=== PATIENT | female | born 1930 | race Caucasian/White ===

== ENCOUNTER 2017-01-18 12:57 | Inpatient (IN) | payer MEDICARE, OTHER ==
[~2017-01-18] VITALS: Ht 160 cm; Wt 43.0 kg
[2017-01-18] VITALS (7 sets, daily range): BP systolic 73–118; BP diastolic 44–57; PULSE 69–100; RESP 16–24; TEMP 96.7–98.5; O2SAT 97–100
[~2017-01-18 12:57] MED LIST: ASPI325T PO; ATOR40TA49 PO; CLOP75 PO; CYCL-36 PO; LOTR5CAP3 PO; MEDR4PAK3 PO; TRAM50 PO
--- NOTE | 2017-01-18 13:04 | PD ---
Physical Exam Time Seen by Provider: 13:04 Narrative 86 y/o female presents with 3 weeks diarrhea, abdominal pain, vomiting. She reports 26 pound weight loss. Seen by pcp [facility] today, sent here. Vital signs reviewed. seen at triage desk. Being immediately bedded. Data Data Last Documented VS Vital Signs Date Time Temp Pulse Resp B/P Pulse Ox O2 Delivery O2 Flow Rate FiO2 01/18/17 13:02 98.5 95 24 73/44 97 Room Air [facility] Medical Record Reviewed: Yes Supervised Visit with ADEN: Desean Vera Jan 18, 2017 13:04
[2017-01-18] MEDS ORDERED: SODIUM CHLOR 0.9% 1000 ML INJ 1,000 ML IV SCH (13:41)
[2017-01-18] MEDS ORDERED: ONDANSETRON HCL 4 MG/2 ML VIAL IVP ONE (13:45)
[2017-01-18 14:19] LABS: AUTOMATED NEUTROPHIL # 14.9 TH/MM3 (1.8-7.7); BASOPHIL # 0.1 TH/MM3 (0-0.2); BASOPHIL % 0.3 % (0.0-2.0); EOSINOPHIL # 0.1 TH/MM3 (0-0.4); EOSINOPHIL % 0.5 % (0.0-4.0); HEMO FLAGS DIFF FINAL; LYMPH % 10.8 % (9.0-44.0); MEAN CELL VOLUME 91.6 FL (80.0-100.0); MEAN CORPUSCULAR HEMOGLOBIN 30.5 PG (27.0-34.0); MEAN CORPUSCULAR HGB CONC 33.4 % (32.0-36.0); MONO % 6.8 % (0.0-8.0); NEUT % 81.6 % (16.0-70.0); PLATELET COUNT 391 TH/MM3 (150-450); RED BLOOD COUNT 4.04 MIL/MM3 (4.00-5.30); RED CELL DISTRIBUTION WIDTH 18.3 % (11.6-17.2); WHITE BLOOD COUNT 18.3 TH/MM3 (4.0-11.0)
[2017-01-18 14:31] LABS: APTT (PATIENT) 30.3 SEC (24.3-30.1); INTERNATIONAL NORMALIZED RATIO 1.4 RATIO; PROTHROMBIN TIME - PATIENT 16.1 SEC (9.8-11.6)
[2017-01-18] MEDS: SODIUM CHLORIDE 0.9% FLUSH 10 ML FLUSH IV FLUSH PRN (14:37)
[2017-01-18 14:49] LABS: BICARBONATE 10.4 MEQ/L (21.0-32.0); POTASSIUM 3.6 MEQ/L (3.5-5.1)
[2017-01-18 14:54] LABS: CALCIUM-PROTEIN CORRECTED 8.2 MG/DL (8.5-10.1); TOTAL BILIRUBIN ADULT 0.2 MG/DL (0.2-1.0)
--- NOTE | 2017-01-18 15:15 | RADRPT ---
EXAM DATE/TIME: 01/18/2017 14:36 [place] COMPARISON: No previous studies available for comparison. INDICATIONS : Abdominal pain with nausea, vomitting and diarhea for 3 weeks. Back pain, hypotension. ORAL CONTRAST: No oral contrast ingested. RADIATION DOSE: 9.96 CTDIvol (mGy) MEDICAL HISTORY : Hypertension. Carcinoma, breast. SURGICAL HISTORY : Pacemaker. Coronary artery stent.Hysterectomy, Left breast lumpectomy ENCOUNTER: Initial ACUITY: 1 day PAIN SCALE: 8/10 LOCATION: abdomen TECHNIQUE: Volumetric scanning of the abdomen and pelvis was performed. Using automated exposure control and ad justment of the mA and/or kV according to patient size, radiation dose was kept as low as reasonably achievable to obtain optimal diagnostic quality images. DICOM format image data is available electro nically for review and comparison. FINDINGS: LOWER LUNGS: Focal rounded calcifications in the right base are likely pleural-based. On bases are otherwise clear . LIVER: Diffusely normal density mild intrahepatic ductal dilatation centrally particularly in the left lobe. Gallbladder is surgically absent. Common bile duct is not significantly dilated.SPLEEN: Normal size without lesion. PANCREAS: Within normal limits. KIDNEYS: Kidneys are asymmetric in size with small somewhat atrophic right kidney. The multiple small punctate calcifications in the mid anterior right kidney may reflect calyceal calculi. There is a subcentimet er hemorrhagic cyst in the inferior pole of the left kidney. No hydronephrosis or contour deforming a bnormality. ADRENAL GLANDS: Within normal limits. VASCULAR: There is no aortic aneurysm. Diffuse atherosclerotic calcifications involving the infrarenal abdomina l aorta with bulky calcified plaque in the common iliac arteries bilaterally. Left SFA stent in place . BOWEL/MESENTERY: Diffusely fluid-filled loops of nondistended small bowel without a definite transition point or signi ficant bowel wall thickening. Colon is also diffusely fluid-filled to the splenic flexure region. Mor e distally the colon is decompressed and incompletely evaluated although grossly unremarkable. There is scattered colonic diverticulosis in the descending colon with moderate sigmoid diverticulosis with out evidence for significant inflammatory change. No pneumatosis or free air. ABDOMINAL WALL: Within normal limits. RETROPERITONEUM: There is no lymphadenopathy. BLADDER: Bladder is distended but otherwise unremarkable by CT. REPRODUCTIVE: Uterus is surgically absent. No significant free fluid or drainable fluid collection. INGUINAL: There is no lymphadenopathy or hernia. MUSCULOSKELETAL: No abnormal focal lytic or blastic bony lesions. CONCLUSION: 1. Diffusely fluid-filled loops of nondistended small bowel and proximal colon without a transition p oint or significant bowel wall thickening. No evidence for bowel infarction or perforation. Overall, findings are most consistent with enteritis. 2. Colonic diverticulosis without definitive evidence for diverticulitis. 3. Asymmetrical renal size with somewhat atrophic appearing right kidney containing small punctate ca lcifications in the midpole which may reflect nonobstructing calyceal calculi. Bal Condon MD on January 18, 2017 at 15:02 Board Certified Radiologist. This report was verified electronically.
[2017-01-18] MEDS ORDERED: CIPROFLOXACIN 400 MG PREMIX 200 ML IV ONE (15:45)
[2017-01-18] MEDS ORDERED: metroNIDAZOLE 500 MG INJ 100 ML IV ONE (15:45)
[2017-01-18 15:46] LABS: C. DIFF EPI 027 PRESUMPTIVE NEGATIVE (NEGATIVE); C. DIFF TOXIN PCR NEGATIVE (NEGATIVE)
[2017-01-18] MEDS ORDERED: ZOFR4TAB PO (16:02)
[2017-01-18] MEDS ORDERED: WELC625T2 PO (16:02)
[2017-01-18] MEDS ORDERED: OMEP20TA PO (16:02)
--- NOTE | 2017-01-18 16:02 | PD ---
HPI Chief Complaint: GI Complaint Time Seen by Provider: 13:14 Travel History International Travel<30 days: No Contact w/Intl Traveler<30days: No Traveled to known affect area: No History of Present Illness HPI Patient is an 86-year-old female who comes in complaining of diarrhea for 3 weeks. She says she has lost 30 pounds over the course of her illness. She says she has not been eating because she feels nauseous. She has not really been vomiting. She says she has some lower abdominal cramping. She denies fever or chills. She has not been on any antibiotics. She went to see her doctor, who told her to come to the emergency department. She has not seen any blood in her stool. PFSH Past Medical History Hx Anticoagulant Therapy: Yes (plavix ) Arthritis: Yes Asthma: No Autoimmune Disease: No Blood Disorders: No Anxiety: Yes Depression: Yes Heart Rhythm Problems: No Cancer: Yes (BREAST CANCER) Cardiovascular Problems: Yes (pacemaker ) High Cholesterol: Yes Chemotherapy: Yes Chest Pain: Yes Congestive Heart Failure: No COPD: No Cerebrovascular Accident: No Diabetes: Yes Patient Takes Glucophage: No Diminished Hearing: Yes Endocrine: Yes Gastrointestinal Disorders: Yes (BOWEL EXPLORATION AND INFECTION.) GERD: No Glaucoma: No Genitourinary: No Headaches: Yes (OCCASIONALLY) Hepatitis: No Hiatal Hernia: No Hypertension: Yes Immune Disorder: No Kidney Stones: No Musculoskeletal: Yes (ARTHRITIS) Neurologic: No Psychiatric: Yes (DEPRESSION/ANXIETY) Reproductive: No Respiratory: No Migraines: No Myocardial Infarction: No Radiation Therapy: Yes Renal Failure: No Seizures: No Sickle Cell Disease: No Sleep Apnea: No Thyroid Disease: No Ulcer: No Influenza Vaccination: Yes PNEUMOCCOCAL Vaccine (Year): 2 ?: Not Menopausal: No Past Surgical History Abdominal Surgery: Yes (Intestinal sx) AICD: No Appendectomy: Yes Arteriovenous Shunt: No Cardiac Surgery: Yes (PACEMAKER) Cholecystectomy: Yes Coronary Stent: Yes (X 6) Ear Surgery: No Endocrine Surgery: No Eye Surgery: No Genitourinary Surgery: No Gynecologic Surgery: Yes (HYSTERECTOMY) Hysterectomy: Yes Insulin Pump: No Joint Replacement: No Mastectomy: Yes (Left) Oral Surgery: No Pacemaker: No Thoracic Surgery: No Other Surgery: Yes (LEFT LUMPECTOMY) Social History Alcohol Use: No Tobacco Use: No Substance Use: No Allergies-Medications (Allergen,Severity, Reaction): Coded Allergies: Codeine (Verified Allergy, Severe, VOMITING, 07/11/11) PER PT'S , PT IS NOT ALLERGIC TO CODEINE Contrast Media (Verified Allergy, Severe, UNKNOWN REACTION, 07/11/11) PER PT'S - SHE IS NOT ALLERGIC TO CONTRAST MEDIA, ONLY IODINE Iodine (Verified Allergy, Severe, HIVES, RASH, 07/11/11) Lortab (Verified Allergy, Severe, VOMITING, 07/11/11) PER PT'S , PT IS NOT ALLERGIC TO LORTAB Percocet (Verified Allergy, Severe, VOMITING, 07/11/11) Sulfa (Verified Allergy, Severe, UNKNOWN REACTION, 07/11/11) PER PT'S , PT IS NOT ALLERGIC TO SULFA Reported Meds & Prescriptions Reported Meds & Active Scripts Active Reported Tramadol (Tramadol HCl) 50 Mg Tab 50 Mg PO BID PRN Plavix (Clopidogrel Bisulfate) 75 Mg Tab 75 Mg PO DAILY Mirtazapine 30 Mg Tab 30 Mg PO HS Temazepam 15 Mg Cap 15 Mg PO HS PRN Aspirin DR (Aspirin) 81 Mg Tabdr 81 Mg PO DAILY Atorvastatin (Atorvastatin Calcium) 80 Mg Tab 80 Mg PO HS Methenamine Hippurate 1 Gm Tab 1 Gm PO DAILY Tribenzor (Aozjswbhsi-Adajucsrtn-Bischmiyhlmidcvpcqt) 40-10-12.5 mg Tab 1 Tab PO DAILY Omeprazole 20 Mg Tab 20 Mg PO DAILY Welchol (Colesevelam HCl) 625 Mg Tab 625 Mg PO TID Zofran (Ondansetron HCl) 4 Mg Tab 4 Mg PO Q4HR PRN Review of Systems Except as stated in HPI: all other systems reviewed are Neg General / Constitutional: No: Fever, Chills HENT: No: Headaches, Lightheadedness Cardiovascular: No: Chest Pain or Discomfort Respiratory: No: Shortness of Breath Gastrointestinal: Positive: Nausea, Diarrhea, Abdominal Pain, No: Vomiting Genitourinary: No: Dysuria Musculoskeletal: No: Myalgias, Edema Skin: No Rash, No Change in Pigmentation Neurologic: Positive: Weakness Physical Exam Narrative GENERAL: Awake and alert, in no acute distress. Very thin. SKIN: Focused skin assessment warm/dry. HEAD: Atraumatic. Normocephalic. EYES: Pupils equal and round. No scleral icterus. ENT: Mucous membranes dry. NECK: Trachea midline. No JVD. CARDIOVASCULAR: Regular rate and rhythm. No murmur appreciated. RESPIRATORY: No accessory muscle use. Clear to auscultation. Breath sounds equal bilaterally. GASTROINTESTINAL: Abdomen soft, nondistended. Mild diffuse abdominal tenderness. MUSCULOSKELETAL: No obvious deformities. No clubbing. No cyanosis. No edema. NEUROLOGICAL: Awake and alert. No obvious cranial nerve deficits. Motor grossly within normal limits. Normal speech. PSYCHIATRIC: Appropriate mood and affect; insight and judgment normal. Data Data Last Documented VS Vital Signs Date Time Temp Pulse Resp B/P Pulse Ox O2 Delivery O2 Flow Rate FiO2 01/18/17 14:22 84 87/54 98 Room Air 01/18/17 14:12 16 01/18/17 13:02 98.5 Orders Complete Blood Count With Diff (01/18/17 13:41) Comprehensive Metabolic Panel (01/18/17 13:41) Lipase (01/18/17 13:41) Lactic Acid (01/18/17 13:41) Prothrombin Time / Inr (Pt) (01/18/17 13:41) Act Partial Throm Time (Ptt) (01/18/17 13:41) Urinalysis - C+S If Indicated (01/18/17 13:41) Ua Includes Microscopic (01/18/17 13:41) Iv Access Insert/Monitor (01/18/17 13:41) Ecg Monitoring (01/18/17 13:41) Oximetry (01/18/17 13:41) Ondansetron Inj (Zofran Inj) (01/18/17 13:45) Sodium Chlor 0.9% 1000 Ml Inj (Ns 1000 M (01/18/17 13:41) Sodium Chloride 0.9% Flush (Ns Flush) (01/18/17 13:45) Electrocardiogram (01/18/17 13:41) Ct Abd/Pel W/O Iv Contrast (01/18/17 ) C Diff Toxin Pcr (01/18/17 13:41) Ciprofloxacin 400 Mg Premix (Cipro 400 M (01/18/17 15:45) Metronidazole 500 Mg Inj (Flagyl 500 Mg (01/18/17 15:45) Admit Order (Ed Use Only) (01/18/17 ) Labs Laboratory Tests Test 01/18/17 13:55 White Blood Count 18.3 TH/MM3 Red Blood Count 4.04 MIL/MM3 Hemoglobin 12.3 GM/DL Hematocrit 37.0 % Mean Corpuscular Volume 91.6 FL Mean Corpuscular Hemoglobin 30.5 PG Mean Corpuscular Hemoglobin 33.4 % Concent Red Cell Distribution Width 18.3 % Platelet Count 391 TH/MM3 Mean Platelet Volume 9.2 FL Neutrophils (%) (Auto) 81.6 % Lymphocytes (%) (Auto) 10.8 % Monocytes (%) (Auto) 6.8 % Eosinophils (%) (Auto) 0.5 % Basophils (%) (Auto) 0.3 % Neutrophils # (Auto) 14.9 TH/MM3 Lymphocytes # (Auto) 2.0 TH/MM3 Monocytes # (Auto) 1.2 TH/MM3 Eosinophils # (Auto) 0.1 TH/MM3 Basophils # (Auto) 0.1 TH/MM3 CBC Comment DIFF FINAL Differential Comment Prothrombin Time 16.1 SEC Prothromb Time International 1.4 RATIO Ratio Activated Partial 30.3 SEC Thromboplast Time Stool C. difficile Toxin (PCR) NEGATIVE Stl C. difficile Toxin PRESUMPTIVE Epiderm 027 NEGATIVE Sodium Level 131 MEQ/L Potassium Level 3.6 MEQ/L Chloride Level 107 MEQ/L Carbon Dioxide Level 10.4 MEQ/L Anion Gap 14 MEQ/L Blood Urea Nitrogen 47 MG/DL Creatinine 1.66 MG/DL Estimat Glomerular Filtration 29 ML/MIN Rate Random Glucose 122 MG/DL Lactic Acid Level 2.0 mmol/L Calcium Level 7.2 MG/DL Protein Corrected Calcium 8.2 MG/DL Total Bilirubin 0.2 MG/DL Aspartate Amino Transf 44 U/L (AST/SGOT) Alanine Aminotransferase 25 U/L (ALT/SGPT) Alkaline Phosphatase 122 U/L Total Protein 5.3 GM/DL Albumin 1.8 GM/DL Lipase 143 U/L [facility] Medical Decision Making Medical Screen Exam Complete: Yes Emergency Medical Condition: Yes Medical Record Reviewed: Yes Differential Diagnosis Colitis versus diverticulitis versus C. difficile versus dehydration versus electrolyte abnormality Narrative Course Patient is an 86-year-old female comes in complaining of diarrhea for 3 weeks. Exam shows a very thin lady, dry mucous membranes. IV established, labs sent. Labs show an elevated BUN/creatinine, suggesting dehydration. Patient given IV fluids. She has an elevated white blood cell count 18.3. CT of the abdomen and pelvis shows enteritis. She is given Cipro and Flagyl. She'll be admitted for further management. Diagnosis Primary Impression: Enteritis Additional Impressions: Diarrhea Qualified Code: A09 - Diarrhea of infectious origin Dehydration Leukocytosis Qualified Code: D72.829 - Leukocytosis, unspecified type Admitting Information Admitting Physician Requests: Admit Condition: Stable Corrine Dyer MD Jan 18, 2017 16:02
[2017-01-18] MEDS ORDERED: TRAM50TA PO (16:07)
[2017-01-18] MEDS ORDERED: METH1TAB2 PO (16:07)
[2017-01-18] MEDS ORDERED: TRIBTAB PO (16:07)
[2017-01-18] MEDS ORDERED: ASPI81TA5 PO (16:07)
[2017-01-18] MEDS ORDERED: PLAV75TA29 PO (16:07)
[2017-01-18] MEDS ORDERED: TEMA15CA PO (16:07)
[2017-01-18] MEDS ORDERED: ATOR1TAB18 PO (16:07)
[2017-01-18] MEDS ORDERED: MIRT30TA PO (16:07)
[2017-01-18 17:30] LABS: BACTERIA, URINE RARE /hpf; BLOOD, URINE NEG (NEG); COMMENT (UR) CULTURE INDICATED; CULTURE IF INDICATED CULTURE INDICATED; GLUCOSE,URINE NEG (NEG); KETONE, URINE NEG (NEG); NITRITE,URINE NEG (NEG); PH, URINE 5.5 (5.0-8.5); SQUAMOUS EPITHELIAL CELL URINE <1 /hpf (0-5); URINE COLOR YELLOW (YELLW/STRAW)
[2017-01-18] MEDS ORDERED: MORPHINE SULFATE 4 MG/ML INJ IV PRN ×2 (17:30)
[2017-01-18] MEDS ORDERED: BISACODYL 10 MG SUPP RECTAL PRN (17:30)
[2017-01-18] MEDS ORDERED: SENNOSIDES 8.6 MG TAB PO PRN (17:30)
[2017-01-18] MEDS ORDERED: MAGNESIUM HYDROXIDE SUSP 30 ML CUP PO PRN (17:30)
[2017-01-18] MEDS ORDERED: NALOXONE HCL 0.4 MG/ML AMP IV PRN (17:30)
[2017-01-18] MEDS ORDERED: ACETAMINOPHEN 325 MG TAB PO PRN (17:30)
[2017-01-18] MEDS ORDERED: LACTULOSE SYRUP 20 GM/30 ML CUP PO PRN (17:30)
--- NOTE | 2017-01-18 17:48 | HHI.HP ---
[facility] Service [facility] Primary Care Physician [facility], III Admission Diagnosis Dehydration, QUIQUE, Enteritis Diagnoses: (1) Dehydration (2) Diarrhea (3) Enteritis (4) Hyponatremia (5) Leukocytosis (6) Sepsis (7) Acute kidney injury (8) Coronary artery disease Chief Complaint: Diarrhea Travel History International Travel<30 Days: No Contact w/Intl Traveler <30 Da: No Traveled to Known Affected Are: No Sepsis Criteria SIRS Criteria (2 or more): Heart rate over 90, WBC > 31939, < 4000 or > 10% bands Sepsis Criteria (SIRS+source): Infect source susp/known Criteria Outcome: Meets sepsis criteria History of Present Illness The patient is an 86-year-old female who presents to the emergency department with complaint of ongoing diarrhea which started about 3 weeks ago. She also reports nausea and vomiting. She reports difficulty urinating recently. She has been having chills, but denies fever. She states that she had a colonoscopy recently in [place], but does not remember the name of the doctor. This was apparently done at [facility] in [place]. Review of Systems Constitutional: COMPLAINS OF: Chills, DENIES: Fever, Night Sweats Eyes: DENIES: Blurred vision, Vision loss Ears, nose, mouth, throat: DENIES: Hearing loss Respiratory: DENIES: Cough, Wheezing, Sputum production, Shortness of breath Cardiovascular: DENIES: Chest pain, Palpitations, Dyspnea on Exertion, Lower Extremity Edema Gastrointestinal: COMPLAINS OF: Abdominal pain, Diarrhea, Nausea, Vomiting, DENIES: Constipation Genitourinary: DENIES: Urinary frequency, Urinary incontinence, Urgency, Hematuria, Dysuria, Nocturia Musculoskeletal: DENIES: Joint pain, Muscle aches Integumentary: DENIES: Pruritus, Rash Hematologic/lymphatic: DENIES: Bruising Neurologic: DENIES: Headache Past Family Social History Past Medical History History of breast cancer Anxiety/depression Osteoarthritis Hyperlipidemia Diabetes mellitus Hypertension Past Surgical History Exploratory abdominal surgery Appendectomy Cholecystectomy Tonsillectomy Pacemaker placement Coronary artery stenting 6 Hysterectomy Left lumpectomy Left mastectomy Reported Medications Zofran as needed Tribenzor Mirtazapine 30 mg daily at bedtime Temazepam 15 mg daily at bedtime as needed WelChol 625 mg 3 times a day Atorvastatin 80 mg daily at bedtime Aspirin 81 mg daily Tramadol 50 mg twice a day as needed Plavix 75 mg daily Omeprazole 20 mg daily Methenamine 1 g daily Allergies: Coded Allergies: Codeine (Verified Allergy, Severe, VOMITING, 07/11/11) PER PT'S , PT IS NOT ALLERGIC TO CODEINE Contrast Media (Verified Allergy, Severe, UNKNOWN REACTION, 07/11/11) PER PT'S - SHE IS NOT ALLERGIC TO CONTRAST MEDIA, ONLY IODINE Iodine (Verified Allergy, Severe, HIVES, RASH, 07/11/11) Lortab (Verified Allergy, Severe, VOMITING, 07/11/11) PER PT'S , PT IS NOT ALLERGIC TO LORTAB Percocet (Verified Allergy, Severe, VOMITING, 07/11/11) Sulfa (Verified Allergy, Severe, UNKNOWN REACTION, 07/11/11) PER PT'S , PT IS NOT ALLERGIC TO SULFA Family History Mother and father both had stroke. Social History Quit smoking 30 years ago. Denies alcohol or illicit drug use. Physical Exam Vital Signs Vital Signs Date Time Temp Pulse Resp B/P Pulse Ox O2 Delivery O2 Flow Rate FiO2 01/18/17 16:20 71 16 118/57 100 Room Air 01/18/17 14:22 84 87/54 98 Room Air 01/18/17 14:12 73 16 94/51 Room Air 01/18/17 13:02 98.5 95 24 73/44 97 Room Air Physical Exam GENERAL: Frail elderly female in no acute distress. HEENT: Normocephalic, atraumatic. Pupils equal, round and reactive. Extraocular movements intact. No scleral icterus. No injection or drainage. Oropharynx is clear. Mucous membranes are somewhat dry. CARDIOVASCULAR: Regular rate and rhythm without murmurs, gallops, or rubs. RESPIRATORY: Clear to auscultation. No wheezes, rales, or rhonchi. Breathing is non-labored. GASTROINTESTINAL: Abdomen soft, tender to palpation in the lower abdomen, nondistended. EXTREMITIES: No lower extremity edema. No calf tenderness. PSYCH: Alert and oriented x 3. Laboratory Laboratory Tests Test 01/18/17 01/18/17 13:55 17:00 White Blood Count 18.3 Red Blood Count 4.04 Hemoglobin 12.3 Hematocrit 37.0 Mean Corpuscular Volume 91.6 Mean Corpuscular Hemoglobin 30.5 Mean Corpuscular Hemoglobin 33.4 Concent Red Cell Distribution Width 18.3 Platelet Count 391 Mean Platelet Volume 9.2 Neutrophils (%) (Auto) 81.6 Lymphocytes (%) (Auto) 10.8 Monocytes (%) (Auto) 6.8 Eosinophils (%) (Auto) 0.5 Basophils (%) (Auto) 0.3 Neutrophils # (Auto) 14.9 Lymphocytes # (Auto) 2.0 Monocytes # (Auto) 1.2 Eosinophils # (Auto) 0.1 Basophils # (Auto) 0.1 CBC Comment DIFF FINAL Differential Comment Prothrombin Time 16.1 Prothromb Time International 1.4 Ratio Activated Partial 30.3 Thromboplast Time Stool C. difficile Toxin (PCR) NEGATIVE Stl C. difficile Toxin PRESUMPTIVE Epiderm 027 NEGATIVE Sodium Level 131 Potassium Level 3.6 Chloride Level 107 Carbon Dioxide Level 10.4 Anion Gap 14 Blood Urea Nitrogen 47 Creatinine 1.66 Estimat Glomerular Filtration 29 Rate Random Glucose 122 Lactic Acid Level 2.0 Calcium Level 7.2 Protein Corrected Calcium 8.2 Total Bilirubin 0.2 Aspartate Amino Transf 44 (AST/SGOT) Alanine Aminotransferase 25 (ALT/SGPT) Alkaline Phosphatase 122 Total Protein 5.3 Albumin 1.8 Lipase 143 Urine Color YELLOW Urine Turbidity HAZY Urine pH 5.5 Urine Specific [place] 1.011 Urine Protein TRACE Urine Glucose (UA) NEG Urine Ketones NEG Urine Occult Blood NEG Urine Nitrite NEG Urine Bilirubin NEG Urine Urobilinogen LESS THAN 2.0 Urine Leukocyte Esterase NEG Urine RBC 1 Urine WBC 16 Urine Squamous Epithelial <1 Cells Urine Amorphous Sediment RARE Urine Bacteria RARE Microscopic Urinalysis Comment CULTURE INDICATED Result Diagram: 01/18/17 1355 01/18/17 1355 Imaging Last Impressions Abdomen/Pelvis CT 01/18/17 0000 Signed Impressions: Service Date/Time: January 14:36 - CONCLUSION: 1. Diffusely fluid-filled loops of nondistended small bowel and proximal colon without a transition point or significant bowel wall thickening. No evidence for bowel infarction or perforation. Overall, findings are most consistent with enteritis. 2. Colonic diverticulosis without definitive evidence for diverticulitis. 3. Asymmetrical renal size with somewhat atrophic appearing right kidney containing small punctate calcifications in the midpole which may reflect nonobstructing calyceal calculi. Bal Condon MD Assessment and Plan Assessment and Plan 1. Abdominal pain, diarrhea: CT scan shows evidence of enteritis. Continue Flagyl, Cipro. Consult GI. Continue pain control, IV fluids. Antibiotics as needed. C. difficile is negative. 2. Sepsis: Secondary to enteritis. Patient presented with leukocytosis, tachycardia. Continue antibiotics. Check blood cultures. Continue IV fluids. 3. Coronary artery disease: Continue Plavix, aspirin. Currently asymptomatic. 4. Hyperlipidemia: Continue statin. 5. Hypertension: Patient takes a combination ARB/calcium channel ira/HCTZ. Will hold diuretic secondary to dehydration. Continue amlodipine. Hold ARB secondary to acute kidney injury. 6. Acute kidney injury: Likely prerenal secondary to dehydration. Continue IV fluids. Monitor labs. 7. DVT prophylaxis: Heparin. Knees, MICHAEL hose. 8. GI prophylaxis: Protonix. Everett Beckman MD Jan 18, 2017 17:48
[2017-01-18] MEDS: HEPARIN SODIUM - SQ 10,000 UNITS/ML VIAL SQ SCH (19:23)
[2017-01-18] MEDS: NS + KCL 20 MEQ INJ 1,000 ML IV SCH (19:42)
[2017-01-18] MEDS: ATORVASTATIN 80 MG TAB PO SCH (21:35)
[2017-01-18] MEDS: MIRTAZAPINE 15 MG TAB PO SCH (21:36)
[2017-01-19] VITALS (8 sets, daily range): BP systolic 102–130; BP diastolic 52–64; PULSE 63–83; RESP 16–18; TEMP 97.5–97.8; O2SAT 95–100
[2017-01-19] MEDS: metroNIDAZOLE 500 MG INJ 100 ML IV SCH ×4 (00:52→23:35)
[2017-01-19] MEDS: traMADol HCL 50 MG TAB PO PRN ×2 (00:52→23:27)
[2017-01-19] MEDS: HEPARIN SODIUM - SQ 10,000 UNITS/ML VIAL SQ SCH ×2 (06:41→17:23)
[2017-01-19] MEDS: NS + KCL 20 MEQ INJ 1,000 ML IV SCH ×2 (06:42→17:34)
[2017-01-19] MEDS: CLOPIDOGREL 75 MG TAB PO SCH (08:49)
[2017-01-19] MEDS: ASPIRIN EC 81 MG TABEC PO SCH (08:50)
[2017-01-19] MEDS: PANTOPRAZOLE SODIUM 40 MG VIAL IV PUSH SCH (08:50)
--- NOTE | 2017-01-19 11:24 | PD.CONS ---
HPI History of Present Illness This is a 86 year old female who presented to the emergency room for evaluation of persistent diarrhea. The patient reports that she's had intermittent diarrhea for several months. She recently had a colonoscopy in [place] about 1-2 months ago for evaluation of the the diarrhea. She states that she was having diarrhea at that time and she had stool studies that were unremarkable and therefore had the colonoscopy done. She cannot tell me the results of this test. She does not know who did the procedure. It was done at [facility] in [place]. She states that the diarrhea has been daily for the past 3 weeks, with significant worsening over the past 4 days. She is having 4-5 liquid bowel movements per day. She has not seen any blood or mucus mixed within her stool. She did have 1 episode of nausea and vomiting a few days ago but denies any hematemesis and has not had any further episodes. She has associated abdominal cramping. She denies any fevers or chills. She reports that she is been on antibiotics frequently for her diarrhea. She cannot tell me what she has been taking. She denies any recent travel, suspicious food, or sick contacts. She does report that she has a history of a diverticular abscess about 30 years ago and afterward she developed a small bowel obstruction secondary to adhesions which required surgery with a bowel resection. She reports that she was told at the time of her surgery that she would need a repeat procedure done in about 10 years, but states she hasn't had any further episodes. She came to the ER for worsening symptoms. She was noted to have a WBC of 18.3. Abdomen/Pelvis CT (01/18/17)----> 1. Diffusely fluid -filled loops of nondistended small bowel and proximal colon without a transition point or significant bowel wall thickening. No evidence for bowel infarction or perforation. Overall, findings are most consistent with enteritis. 2. Colonic diverticulosis without definitive evidence for diverticulitis. 3. Asymmetrical renal size with somewhat atrophic appearing right kidney containing small punctate calcifications in the midpole which may reflect nonobstructing calyceal calculi. Urine and blood cultures are pending. She was started on Cipro and Flagyl. Of note she is also on Plavix and heparin. (Aleksandra Gayle) PFS Past Medical History History of breast cancer Anxiety/depression Osteoarthritis Hyperlipidemia Diabetes mellitus Hypertension Small bowel obstruction Remote history of diverticular abscess Chronic diarrhea Past Surgical History Exploratory abdominal surgery with bowel resection Appendectomy Cholecystectomy Tonsillectomy Pacemaker placement Coronary artery stenting 6 Hysterectomy Left lumpectomy Left mastectomy Colonoscopy (Aleksandra Gayle) Coded Allergies: Codeine (Verified Allergy, Severe, VOMITING, 07/11/11) PER PT'S , PT IS NOT ALLERGIC TO CODEINE Contrast Media (Verified Allergy, Severe, UNKNOWN REACTION, 07/11/11) PER PT'S - SHE IS NOT ALLERGIC TO CONTRAST MEDIA, ONLY IODINE Iodine (Verified Allergy, Severe, HIVES, RASH, 07/11/11) Lortab (Verified Allergy, Severe, VOMITING, 07/11/11) PER PT'S , PT IS NOT ALLERGIC TO LORTAB Percocet (Verified Allergy, Severe, VOMITING, 07/11/11) Sulfa (Verified Allergy, Severe, UNKNOWN REACTION, 07/11/11) PER PT'S , PT IS NOT ALLERGIC TO SULFA Medications Allergies Coded Allergies Type Severity Reaction Last Updated Verified Codeine Allergy Severe VOMITING 07/11/11 Yes Contrast Media Allergy Severe UNKNOWN REACTION 07/11/11 Yes Iodine Allergy Severe HIVES, RASH 07/11/11 Yes Lortab Allergy Severe VOMITING 07/11/11 Yes Percocet Allergy Severe VOMITING 07/11/11 Yes Sulfa Allergy Severe UNKNOWN REACTION 07/11/11 Yes Active Scripts Medications Dose Route/Sig Days Date Category Tramadol (Tramadol HCl) 50 Mg Tab 50 Mg PO BID PRN 01/18/17 Reported Plavix (Clopidogrel Bisulfate) 75 Mg Tab 75 Mg PO DAILY 01/18/17 Reported Mirtazapine 30 Mg Tab 30 Mg PO HS 01/18/17 Reported Temazepam 15 Mg Cap 15 Mg PO HS PRN 01/18/[address] (Aspirin) 81 Mg Tabdr 81 Mg PO DAILY 01/18/17 Reported Atorvastatin (Atorvastatin Calcium) 80 Mg Tab 80 Mg PO HS 01/18/17 Reported Methenamine Hippurate 1 Gm Tab 1 Gm PO DAILY 01/18/17 Reported Tribenzor (Qmuetgkvts-Zyethblsiv-Qpvxwwmqhxgkxbccryy) 40-10-12.5 mg Tab 1 Tab PO DAILY 01/18/17 Reported Omeprazole 20 Mg Tab 20 Mg PO DAILY 01/18/17 Reported Welchol (Colesevelam HCl) 625 Mg Tab 625 Mg PO TID 01/18/17 Reported Zofran (Ondansetron HCl) 4 Mg Tab 4 Mg PO Q4HR PRN 01/18/17 Reported Family History Mother and father both had stroke. Social History Quit smoking 30 years ago. Denies alcohol or illicit drug use. (Aleksandra Gayle) Review of Systems Constitutional: COMPLAINS OF: Fatigue, DENIES: Fever, Chills Respiratory: DENIES: Cough Cardiovascular: DENIES: Chest pain Gastrointestinal: COMPLAINS OF: Abdominal pain, Diarrhea, Nausea, Vomiting, DENIES: Black stools, Bloody stools, Constipation, Swelling of Abdomen, Heartburn, Hematemesis Musculoskeletal: COMPLAINS OF: Joint pain, Back pain Integumentary: DENIES: Rash Hematologic/lymphatic: COMPLAINS OF: Bruising Neurologic: DENIES: Headache Psychiatric: DENIES: Confusion (Aleksandra Gayle) GI Exam Vitals I&O Vital Signs Date Time Temp Pulse Resp B/P Pulse Ox O2 Delivery O2 Flow Rate FiO2 01/19/17 08:00 97.5 83 16 112/52 100 01/19/17 04:15 97.6 80 16 105/52 99 01/19/17 00:00 97.7 78 18 102/55 100 01/18/17 22:02 Nasal Cannula 2.00 01/18/17 20:00 96.7 100 16 113/56 97 01/18/17 19:22 78 16 103/54 100 Nasal Cannula 2 01/18/17 18:52 69 17 102/55 97 Room Air 01/18/17 16:20 71 16 118/57 100 Room Air 01/18/17 14:22 84 87/54 98 Room Air 01/18/17 14:12 73 16 94/51 Room Air 01/18/17 13:02 98.5 95 24 73/44 97 Room Air I/O 01/18/17 01/18/17 01/18/17 01/19/17 01/19/17 01/19/17 07:00 15:00 23:00 07:00 15:00 23:00 Intake Total 1024 ml Balance 1024 ml Intake IV Total 1024 ml Imaging Last Impressions Abdomen/Pelvis CT 01/18/17 0000 Signed Impressions: Service Date/Time: January 14:36 - CONCLUSION: 1. Diffusely fluid-filled loops of nondistended small bowel and proximal colon without a transition point or significant bowel wall thickening. No evidence for bowel infarction or perforation. Overall, findings are most consistent with enteritis. 2. Colonic diverticulosis without definitive evidence for diverticulitis. 3. Asymmetrical renal size with somewhat atrophic appearing right kidney containing small punctate calcifications in the midpole which may reflect nonobstructing calyceal calculi. Bal Condon MD Laboratory Test 01/18/17 01/18/17 13:55 17:00 White Blood Count 18.3 TH/MM3 Red Blood Count 4.04 MIL/MM3 Hemoglobin 12.3 GM/DL Hematocrit 37.0 % Mean Corpuscular Volume 91.6 FL Mean Corpuscular Hemoglobin 30.5 PG Mean Corpuscular Hemoglobin 33.4 % Concent Red Cell Distribution Width 18.3 % Platelet Count 391 TH/MM3 Mean Platelet Volume 9.2 FL Neutrophils (%) (Auto) 81.6 % Lymphocytes (%) (Auto) 10.8 % Monocytes (%) (Auto) 6.8 % Eosinophils (%) (Auto) 0.5 % Basophils (%) (Auto) 0.3 % Neutrophils # (Auto) 14.9 TH/MM3 Lymphocytes # (Auto) 2.0 TH/MM3 Monocytes # (Auto) 1.2 TH/MM3 Eosinophils # (Auto) 0.1 TH/MM3 Basophils # (Auto) 0.1 TH/MM3 CBC Comment DIFF FINAL Differential Comment Prothrombin Time 16.1 SEC Prothromb Time International 1.4 RATIO Ratio Activated Partial 30.3 SEC Thromboplast Time Stool C. difficile Toxin (PCR) NEGATIVE Stl C. difficile Toxin PRESUMPTIVE Epiderm 027 NEGATIVE Sodium Level 131 MEQ/L Potassium Level 3.6 MEQ/L Chloride Level 107 MEQ/L Carbon Dioxide Level 10.4 MEQ/L Anion Gap 14 MEQ/L Blood Urea Nitrogen 47 MG/DL Creatinine 1.66 MG/DL Estimat Glomerular Filtration 29 ML/MIN Rate Random Glucose 122 MG/DL Lactic Acid Level 2.0 mmol/L Calcium Level 7.2 MG/DL Protein Corrected Calcium 8.2 MG/DL Total Bilirubin 0.2 MG/DL Aspartate Amino Transf 44 U/L (AST/SGOT) Alanine Aminotransferase 25 U/L (ALT/SGPT) Alkaline Phosphatase 122 U/L Total Protein 5.3 GM/DL Albumin 1.8 GM/DL Lipase 143 U/L Urine Color YELLOW Urine Turbidity HAZY Urine pH 5.5 Urine Specific [place]son 1.011 Urine Protein TRACE mg/dL Urine Glucose (UA) NEG mg/dL Urine Ketones NEG mg/dL Urine Occult Blood NEG Urine Nitrite NEG Urine Bilirubin NEG Urine Urobilinogen LESS THAN 2.0 MG/DL Urine Leukocyte Esterase NEG Urine RBC 1 /hpf Urine WBC 16 /hpf Urine Squamous Epithelial <1 /hpf Cells Urine Amorphous Sediment RARE Urine Bacteria RARE /hpf Microscopic Urinalysis Comment CULTURE INDICATED Date/Time Procedure Status Source Growth 01/18/17 17:00 Urine Culture Received Urine Random Urine Pending 01/18/17 14:20 Aerobic Blood Culture Received Blood Peripheral Pending 01/18/17 14:20 Anaerobic Blood Culture Received Blood Peripheral Pending Physical Examination HEENT: Normocephalic; atraumatic; no jaundice. CHEST: CTA CARDIAC: RRR ABDOMEN: Soft, nondistended, nontender; no hepatosplenomegaly; bowel sounds are present in all four quadrants. EXTREMITIES: No clubbing, cyanosis, or edema. SKIN: Normal; no rash; no jaundice. 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 (Aleksandra Gayle) Assessment and Plan Plan ASSESSMENT: - Enteritis with n/v/d. Pt reports hx of diarrhea x 1-2 months. She was evaluated with stool studies, colonoscopy 1-2 months ago at [facility] in [place]. She does not know the physician's name or findings. She has also been on abx for this, although she cannot recall which one. She denies suspicious food, travel, or sick contacts. Abdomen/Pelvis CT (01/18/17) ----> 1. Diffusely fluid-filled loops of nondistended small bowel and proximal colon without a transition point or significant bowel wall thickening. No evidence for bowel infarction or perforation. Overall, findings are most consistent with enteritis. 2. Colonic diverticulosis without definitive evidence for diverticulitis. 3. Asymmetrical renal size with somewhat atrophic appearing right kidney containing small punctate calcifications in the midpole which may reflect nonobstructing calyceal calculi. Urine and blood cultures are pending. Cipro/ Flagyl. IVF. Clear liquids. Send stool studies for C. difficile, ova and parasites , Giardia, enteric pathogens. - Leukocytosis. WBC yesterday 18.3. Will get stool studies and recheck CBC today. Continue Flagyl and Cipro - Acute kidney injury with multiple electrolyte abnormalities. Recheck labs today. IVF - Coronary artery disease, hypertension. S/P Cardiac cath with stenting, on Plavix - OA, DM, Hx breast cancer per attending. Also on heparin for DVT proph. 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 30 years ago PLAN: - Clear liquids - PPI - IV fluids - Cipro/Flagyl - CBC, BMP today - Send stool for C. difficile, Giardia, ova and parasites, enteric pathogens - Monitor labs - Supportive care - Obtain records from [facility], recent colonoscopy and pathology - Patient seen and examined by Dr. Lenz and myself and this note is written on her behalf (Aleksandra Gayle) Physician Comments seen, examined agree with above she states she had egd same time with colonoscopy -was negative she had similar issues 30 years ago, was told her intestines were fused , had exploratory laparoscopy with lysis of adhesion celiac panel states she feels fine now, wants to go home (Basia Lenz MD) Aleksandra Gayle Jan 19, 2017 11:24 Basia Lenz MD Jan 19, 2017 19:43
--- NOTE | 2017-01-19 12:09 | EKG ---
Date Performed: 01/18/2017 Time Performed: 14:19:31 PTAGE: 86 years EKG: ECTOPIC ATRIAL RHYTHM LOW QRS VOLTAGE IN PRECORDIAL LEADS POSSIBLE ANTERIOR MYOCARDIAL INFA RCTION ABNORMAL ECG WARNING: DATA QUALITY MAY AFFECT INTERPRETATION PREVIOUS TRACING : 06/07/2010 02.14 Compared to the prior study, axis has shifted leftwar d. Poor R wave progression is now prominent. Nonspecific T-wave changes are also present. DOCTOR: Román Nathan Interpretating Date/Time 01/19/2017 12:07:47
[2017-01-19] MEDS: CIPROFLOXACIN 400 MG PREMIX 200 ML IV SCH (17:22)
--- NOTE | 2017-01-19 18:14 | HHI.PR ---
Subjective Remarks Patient reports that her pain is gone, but just feels weak overall, says she doesn't feel eating much. Does say that her diarrhea has stopped Objective Vital Signs Date Time Temp Pulse Resp B/P Pulse Ox O2 Delivery O2 Flow Rate FiO2 01/19/17 16:49 98 Nasal Cannula 2.00 01/19/17 16:00 97.5 76 16 130/62 98 01/19/17 12:40 98 Nasal Cannula 2.00 01/19/17 12:00 97.8 76 16 107/53 100 01/19/17 08:00 97.5 83 16 112/52 100 01/19/17 04:15 97.6 80 16 105/52 99 01/19/17 00:00 97.7 78 18 102/55 100 01/18/17 22:02 Nasal Cannula 2.00 01/18/17 20:00 96.7 100 16 113/56 97 01/18/17 19:22 78 16 103/54 100 Nasal Cannula 2 01/18/17 18:52 69 17 102/55 97 Room Air I/O 01/18/17 01/18/17 01/18/17 01/19/17 01/19/17 01/19/17 06:59 14:59 22:59 06:59 14:59 22:59 Intake Total 1624 ml Balance 1624 ml Intake Oral 600 ml IV Total 1024 ml # Voids 2 Result Diagram: 01/18/17 1355 01/18/17 1355 Objective Remarks GENERAL: Weak elderly female, no acute distress EYES: No scleral icterus. No injection or drainage. CARDIOVASCULAR: Regular rate and rhythm without murmurs, gallops, or rubs. RESPIRATORY: Breath sounds equal bilaterally. No accessory muscle use. GASTROINTESTINAL: Abdomen soft, nondistended, does have mild diffuse tenderness to palpation, no focal masses palpated MUSCULOSKELETAL: No cyanosis, or edema. A/P Assessment and Plan 1. Abdominal pain, diarrhea: CT scan shows evidence of enteritis. Continue Hui Tarango. Appreciate GI input 2. Sepsis: Significantly improved, we'll follow up on blood cultures, continue IV fluids, treat as above 3. Coronary artery disease: Continue Plavix, aspirin. Currently asymptomatic. 4. Hyperlipidemia: Continue statin. 5. Hypertension: Hold ARB/calcium channel ira/HCTZ secondary to dehydration. Continue amlodipine. Hold ARB secondary to acute kidney injury. 6. Acute kidney injury: Likely prerenal secondary to dehydration. Continue IV fluids. Monitor labs. 7. DVT prophylaxis: Heparin. Knees, MICHAEL hose. 8. GI prophylaxis: Protonix. Preet Chen MD Jan 19, 2017 18:14
[2017-01-19 22:32] LABS: AUTOMATED NEUTROPHIL # 9.8 TH/MM3 (1.8-7.7); BASOPHIL # 0.1 TH/MM3 (0-0.2); BASOPHIL % 0.6 % (0.0-2.0); EOSINOPHIL # 0.1 TH/MM3 (0-0.4); HEMATOCRIT 33.6 % (35.0-46.0); HEMO FLAGS DIFF FINAL; LYMPH % 13.2 % (9.0-44.0); LYMPHOCYTE # 1.7 TH/MM3 (1.0-4.8); MEAN CELL VOLUME 91.6 FL (80.0-100.0); MEAN CORPUSCULAR HGB CONC 32.8 % (32.0-36.0); MONO % 9.2 % (0.0-8.0); PLATELET COUNT 383 TH/MM3 (150-450); RED BLOOD COUNT 3.67 MIL/MM3 (4.00-5.30); RED CELL DISTRIBUTION WIDTH 17.7 % (11.6-17.2); WHITE BLOOD COUNT 12.9 TH/MM3 (4.0-11.0)
[2017-01-19 22:53] LABS: BICARBONATE 15.1 MEQ/L (21.0-32.0); CALCIUM-PROTEIN CORRECTED 7.9 MG/DL (8.5-10.1); TOTAL BILIRUBIN ADULT 0.2 MG/DL (0.2-1.0)
[2017-01-19 23:00] LABS: POTASSIUM 2.9 MEQ/L (3.5-5.1)
[2017-01-19] MEDS: ATORVASTATIN 80 MG TAB PO SCH (23:22)
[2017-01-19] MEDS: MIRTAZAPINE 15 MG TAB PO SCH (23:26)
[2017-01-20] VITALS (7 sets, daily range): BP systolic 99–138; BP diastolic 56–65; PULSE 74–84; RESP 18; TEMP 96.5–97.5; O2SAT 97–100
[2017-01-20] MEDS ORDERED: POTASSIUM CHLORIDE 10 MEQ CONTROLLED RELEASE TAB PO ONE ×2 (01:30→11:00)
[2017-01-20] MEDS: NS + KCL 20 MEQ INJ 1,000 ML IV SCH (02:41)
[2017-01-20] MEDS: HEPARIN SODIUM - SQ 10,000 UNITS/ML VIAL SQ SCH ×2 (05:27→17:47)
[2017-01-20] MEDS: ACETAMINOPHEN 325 MG TAB PO PRN ×2 (05:38→22:56)
[2017-01-20] MEDS: PANTOPRAZOLE SODIUM 40 MG VIAL IV PUSH SCH (08:28)
[2017-01-20] MEDS: metroNIDAZOLE 500 MG INJ 100 ML IV SCH ×3 (08:28→23:06)
[2017-01-20] MEDS: CLOPIDOGREL 75 MG TAB PO SCH (08:30)
[2017-01-20] MEDS: ASPIRIN EC 81 MG TABEC PO SCH (08:30)
[2017-01-20] MEDS: traMADol HCL 50 MG TAB PO PRN ×2 (08:32→17:47)
--- NOTE | 2017-01-20 11:12 | HHI.GIFU ---
Subjective Remarks Patient is sleeping, wakes up to me calling her name. Wants to go home. State she had soft stools but not bad. Denies nausea, vomiting, melena, hematochezia or abd pain. (Talha Thorpe) Objective Vitals I&O Vital Signs Date Time Temp Pulse Resp B/P Pulse Ox O2 Delivery O2 Flow Rate FiO2 01/20/17 08:38 97.2 80 18 124/59 98 01/20/17 04:28 96.7 75 18 123/65 100 01/20/17 02:10 96.5 74 18 123/60 100 01/19/17 18:00 78 01/19/17 16:49 98 Nasal Cannula 2.00 01/19/17 16:00 97.5 76 16 130/62 98 01/19/17 12:40 98 Nasal Cannula 2.00 01/19/17 12:00 97.8 76 16 107/53 100 I/O 01/19/17 01/19/17 01/19/17 01/20/17 01/20/17 01/20/17 07:00 15:00 23:00 07:00 15:00 23:00 Intake Total 1624 ml Balance 1624 ml Intake Oral 600 ml IV Total 1024 ml # Voids 2 0 Laboratory Laboratory Tests Test 01/19/17 21:36 White Blood Count 12.9 Red Blood Count 3.67 Hemoglobin 11.0 Hematocrit 33.6 Mean Corpuscular Volume 91.6 Mean Corpuscular Hemoglobin 30.0 Mean Corpuscular Hemoglobin 32.8 Concent Red Cell Distribution Width 17.7 Platelet Count 383 Mean Platelet Volume 8.5 Neutrophils (%) (Auto) 76.0 Lymphocytes (%) (Auto) 13.2 Monocytes (%) (Auto) 9.2 Eosinophils (%) (Auto) 1.0 Basophils (%) (Auto) 0.6 Neutrophils # (Auto) 9.8 Lymphocytes # (Auto) 1.7 Monocytes # (Auto) 1.2 Eosinophils # (Auto) 0.1 Basophils # (Auto) 0.1 CBC Comment DIFF FINAL Differential Comment Sodium Level 139 Potassium Level 2.9 Chloride Level 114 Carbon Dioxide Level 15.1 Anion Gap 10 Blood Urea Nitrogen 39 Creatinine 1.29 Estimat Glomerular Filtration 39 Rate Random Glucose 119 Calcium Level 6.4 Protein Corrected Calcium 7.9 Total Bilirubin 0.2 Aspartate Amino Transf 30 (AST/SGOT) Alanine Aminotransferase 21 (ALT/SGPT) Alkaline Phosphatase 111 Total Protein 4.2 Albumin 1.4 Magnesium Level 1.0 Date/Time Procedure Status Source Growth 01/18/17 17:00 Urine Culture - Preliminary Resulted Urine Random Urine Group D Enterococcus 01/18/17 14:20 Aerobic Blood Culture - Preliminary Resulted Blood Peripheral NO GROWTH IN 1 DAY 01/18/17 14:20 Anaerobic Blood Culture - Preliminary Resulted Blood Peripheral NO GROWTH IN 1 DAY Imaging Last Impressions Abdomen/Pelvis CT 01/18/17 0000 Signed Impressions: Service Date/Time: January 14:36 - CONCLUSION: 1. Diffusely fluid-filled loops of nondistended small bowel and proximal colon without a transition point or significant bowel wall thickening. No evidence for bowel infarction or perforation. Overall, findings are most consistent with enteritis. 2. Colonic diverticulosis without definitive evidence for diverticulitis. 3. Asymmetrical renal size with somewhat atrophic appearing right kidney containing small punctate calcifications in the midpole which may reflect nonobstructing calyceal calculi. Bal Condon MD Physical Exam HEENT: Pupils round and reactive to light; normocephalic; atraumatic; no jaundice. NECK: Neck is supple, no JVD, no lymphadenopathy. CHEST: Chest is clear to auscultation and percussion. CARDIAC: Regular rate and rhythm with no murmur gallop or rubs. ABDOMEN: Soft, nondistended, nontender; no hepatosplenomegaly; bowel sounds are present in all four quadrants. EXTREMITIES: No clubbing, cyanosis, or edema. SKIN: Normal; no rash; no jaundice. 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 (Maurilio,Talha WILLARD) Assessment and Plan Plan ASSESSMENT: - Enteritis with n/v/d. Pt reports hx of diarrhea x 1-2 months. stool studies for C. difficile (-), She was evaluated with stool studies, EGD/colonoscopy 1-2 months ago at [facility] in [place]. She does not know the physician's name or findings. She has also been on abx for this, although she cannot recall which one. She denies suspicious food, travel, or sick contacts. Abdomen/Pelvis CT (01/18/17) ----> 1. Diffusely fluid-filled loops of nondistended small bowel and proximal colon without a transition point or significant bowel wall thickening. No evidence for bowel infarction or perforation. Overall, findings are most consistent with enteritis. 2. Colonic diverticulosis without definitive evidence for diverticulitis. 3. Asymmetrical renal size with somewhat atrophic appearing right kidney containing small punctate calcifications in the midpole which may reflect nonobstructing calyceal calculi. Cipro/Flagyl. Send - Leukocytosis. IMPROVING. WBC 12.9. blood cx no growth so far, Flagyl and Cipro - Acute kidney injury with multiple electrolyte abnormalities. improving IVF - Coronary artery disease, hypertension. S/P Cardiac cath with stenting, on Plavix - OA, DM, Hx breast cancer per attending. Also on heparin for DVT proph. 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 30 years ago PLAN: - Advance to full liquids - PPI - IV fluids - Cipro/Flagyl - Await celiac panel - Monitor labs - Supportive care - Await records from [facility], recent EGD/colonoscopy and pathology - Patient seen and examined by Dr. Lenz and myself and this note is written on her behalf (Talha Thorpe) Physician Comments seen, examined agree with above wants to go home ok to dc home from gi point if tolerates food and diarrhea improved fu gi in 2 weeks (Basia Lenz MD) Talha Thorpe Jan 20, 2017 11:12 Basia Lenz MD Jan 20, 2017 15:27
[2017-01-20] MEDS ORDERED: POTASSIUM CHLORIDE INJ 20 MEQ, MAGNESIUM SULFATE INJ 2 GM in SODIUM CHLOR 0.9% 1000 ML ... IV ONE (12:00)
[2017-01-20 12:36] LABS: AUTOMATED NEUTROPHIL # 10.7 TH/MM3 (1.8-7.7); BASOPHIL # 0.1 TH/MM3 (0-0.2); BASOPHIL % 0.5 % (0.0-2.0); EOSINOPHIL # 0.2 TH/MM3 (0-0.4); EOSINOPHIL % 1.3 % (0.0-4.0); HEMATOCRIT 36.4 % (35.0-46.0); HEMO FLAGS DIFF FINAL; LYMPHOCYTE # 1.9 TH/MM3 (1.0-4.8); MEAN CELL VOLUME 92.3 FL (80.0-100.0); MEAN CORPUSCULAR HEMOGLOBIN 31.1 PG (27.0-34.0); MEAN CORPUSCULAR HGB CONC 33.7 % (32.0-36.0); MONO % 11.6 % (0.0-8.0); NEUT % 73.6 % (16.0-70.0); PLATELET COUNT 370 TH/MM3 (150-450); RED BLOOD COUNT 3.94 MIL/MM3 (4.00-5.30); RED CELL DISTRIBUTION WIDTH 18.4 % (11.6-17.2); WHITE BLOOD COUNT 14.6 TH/MM3 (4.0-11.0)
[2017-01-20 12:46] LABS: BICARBONATE 12.7 MEQ/L (21.0-32.0)
[2017-01-20 13:06] LABS: CALCIUM-PROTEIN CORRECTED 7.8 MG/DL (8.5-10.1)
--- NOTE | 2017-01-20 16:44 | HHI.PR ---
Subjective Remarks Follow-up on enteritis. Patient says she feels better, nursing says she still isn't eating much. Patient says she had mild loose stool today Objective Vital Signs Date Time Temp Pulse Resp B/P Pulse Ox O2 Delivery O2 Flow Rate FiO2 01/20/17 12:44 97 21 01/20/17 12:44 97.5 77 18 137/62 97 01/20/17 08:38 97.2 80 18 124/59 98 01/20/17 08:05 79 01/20/17 04:28 96.7 75 18 123/65 100 01/20/17 02:10 96.5 74 18 123/60 100 01/19/17 18:00 78 01/19/17 16:49 98 Nasal Cannula 2.00 I/O 01/19/17 01/19/17 01/19/17 01/20/17 01/20/17 01/20/17 07:00 15:00 23:00 07:00 15:00 23:00 Intake Total 1624 ml Balance 1624 ml Intake Oral 600 ml IV Total 1024 ml # Voids 2 0 Result Diagram: 01/20/17 1115 01/20/17 1145 Objective Remarks GENERAL: Resting comfortably, easily awakened, appears in better spirits today EYES: No scleral icterus. No injection or drainage. CARDIOVASCULAR: Regular rate and rhythm without murmurs, gallops, or rubs. RESPIRATORY: Breath sounds equal bilaterally. No accessory muscle use. GASTROINTESTINAL: Abdomen soft, nondistended, does have mild diffuse tenderness to palpation, no focal masses palpated MUSCULOSKELETAL: No cyanosis, or edema. A/P Assessment and Plan 1. Abdominal pain, diarrhea: CT scan shows evidence of enteritis. Continue Flagyl, Cipro. 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 Sepsis: Sepsis component resolved, follow up on blood cultures, continue IV fluids, treat as above 3. Coronary artery disease: Continue Plavix, aspirin. Currently asymptomatic. 4. Hyperlipidemia: Continue statin. 5. Hypertension: Hold ARB/calcium channel ira/HCTZ secondary to dehydration. Continue amlodipine. Hold ARB secondary to acute kidney injury. 6. Acute kidney injury: Likely prerenal secondary to dehydration. Continue IV fluids. Monitor labs. 7. DVT prophylaxis: Heparin. Knees, MICHAEL hose. 8. GI prophylaxis: Protonix. Preet Chen MD Jan 20, 2017 16:44
[2017-01-20] MEDS: CIPROFLOXACIN 400 MG PREMIX 200 ML IV SCH (17:46)
[2017-01-20] MEDS: MIRTAZAPINE 15 MG TAB PO SCH (22:54)
[2017-01-20] MEDS: ATORVASTATIN 80 MG TAB PO SCH (22:56)
[2017-01-20] MEDS: SODIUM CHLORIDE 0.9% FLUSH 10 ML FLUSH IV FLUSH PRN (23:06)
[2017-01-21] VITALS: BP 155/68; PULSE 106; RESP 20; TEMP 97.3; O2SAT 96
[2017-01-21] MEDS: HEPARIN SODIUM - SQ 10,000 UNITS/ML VIAL SQ SCH ×2 (05:10→16:54)
[2017-01-21] MEDS: traMADol HCL 50 MG TAB PO PRN ×2 (05:11→15:49)
[2017-01-21 05:41] VITALS: BP 134/60; PULSE 70; RESP 20; TEMP 97.3; O2SAT 97
[2017-01-21] MEDS: metroNIDAZOLE 500 MG INJ 100 ML IV SCH ×2 (08:34→15:49)
[2017-01-21] MEDS: PANTOPRAZOLE SODIUM 40 MG VIAL IV PUSH SCH (08:34)
[2017-01-21] MEDS: CLOPIDOGREL 75 MG TAB PO SCH (08:37)
[2017-01-21] MEDS: ASPIRIN EC 81 MG TABEC PO SCH (08:37)
[2017-01-21 09:02] VITALS: BP 146/65; PULSE 78; RESP 20; TEMP 97.9; O2SAT 97
[2017-01-21 13:26] VITALS: BP 151/72; PULSE 77; RESP 20; TEMP 97.3; O2SAT 98
--- NOTE | 2017-01-21 14:42 | HHI.PR ---
Subjective Remarks Follow-up on enteritis. Patient looks more exhausted today than she did yesterday, nursing says she did. Her appetite of yesterday but today she is barely eating. No diarrhea reported. When asked if she said feels weaker today, the patient says yes. When asked about her abdominal pain, she says is "same as yesterday". When asked about her appetite, she says she just doesn't feel like eating, yet she denies nausea. When asked if she has trouble sleeping she says yes. Objective Vital Signs Date Time Temp Pulse Resp B/P Pulse Ox O2 Delivery O2 Flow Rate FiO2 01/21/17 13:26 97.3 77 20 151/72 98 01/21/17 09:02 97.9 78 20 146/65 97 01/21/17 05:41 97.3 70 20 134/60 97 01/21/17 00:00 97.3 106 20 155/68 96 01/20/17 21:42 97.3 80 18 138/63 100 01/20/17 18:26 16 01/20/17 16:00 97.3 84 18 99/56 97 I/O 01/20/17 01/20/17 01/20/17 01/21/17 01/21/17 01/21/17 06:59 14:59 22:59 06:59 14:59 22:59 Intake Total 240 ml Balance 240 ml Intake Oral 240 ml # Voids 0 2 1 1 # Bowel Movements 1 Result Diagram: 01/20/17 1115 01/20/17 1145 Objective Remarks GENERAL: Sleeping, easily awakened EYES: No scleral icterus. No injection or drainage. CARDIOVASCULAR: Regular rate and rhythm without murmurs, gallops, or rubs. RESPIRATORY: Breath sounds equal bilaterally. No accessory muscle use. GASTROINTESTINAL: Abdomen soft, nondistended, does have mild diffuse tenderness to palpation, no focal masses palpated MUSCULOSKELETAL: No cyanosis, or edema. A/P Assessment and Plan 1. Abdominal pain, diarrhea: CT scan shows evidence of enteritis. Continue Flagyl, Cipro. will hydrate at half maintenance. 2. Decreased appetite - checking CMP today, question of underlying depression is at play, we'll start Remeron. Will get PT to ambulate to assess for home disposition 3. Coronary artery disease: Continue Plavix, aspirin. Currently asymptomatic. 4. Hyperlipidemia: Continue statin. 5. Hypertension: Hold ARB/calcium channel ira/HCTZ secondary to dehydration. Continue amlodipine. Hold ARB secondary to acute kidney injury. 6. Acute kidney injury: likely resolved given IVF, will check labs as above 7. DVT prophylaxis: Heparin. Bernice, MICHAEL membreno. 8. GI prophylaxis: Protonix. Preet Chen MD Jan 21, 2017 14:42
--- NOTE | 2017-01-21 15:11 | HHI.GIFU ---
Subjective Remarks Lying in bed in no apparent distress. States increased fatigue and decreased appetite. No diarrhea. Has lower abdominal pain, intermittent. (Jaida Louise) Objective Vitals I&O Vital Signs Date Time Temp Pulse Resp B/P Pulse Ox O2 Delivery O2 Flow Rate FiO2 01/21/17 13:26 97.3 77 20 151/72 98 01/21/17 09:02 97.9 78 20 146/65 97 01/21/17 05:41 97.3 70 20 134/60 97 01/21/17 00:00 97.3 106 20 155/68 96 01/20/17 21:42 97.3 80 18 138/63 100 01/20/17 18:26 16 01/20/17 16:00 97.3 84 18 99/56 97 I/O 01/20/17 01/20/17 01/20/17 01/21/17 01/21/17 01/21/17 07:00 15:00 23:00 07:00 15:00 23:00 Intake Total 240 ml Balance 240 ml Intake Oral 240 ml # Voids 0 2 1 1 # Bowel Movements 1 Laboratory Date/Time Procedure Status Source Growth 01/18/17 17:00 Urine Culture - Final Complete Urine Random Urine Enterococcus Faecalis 01/18/17 14:20 Aerobic Blood Culture - Preliminary Resulted Blood Peripheral NO GROWTH IN 3 DAYS 01/18/17 14:20 Anaerobic Blood Culture - Preliminary Resulted Blood Peripheral NO GROWTH IN 3 DAYS Imaging Last Impressions Abdomen/Pelvis CT 01/18/17 0000 Signed Impressions: Service Date/Time: January 14:36 - CONCLUSION: 1. Diffusely fluid-filled loops of nondistended small bowel and proximal colon without a transition point or significant bowel wall thickening. No evidence for bowel infarction or perforation. Overall, findings are most consistent with enteritis. 2. Colonic diverticulosis without definitive evidence for diverticulitis. 3. Asymmetrical renal size with somewhat atrophic appearing right kidney containing small punctate calcifications in the midpole which may reflect nonobstructing calyceal calculi. Bal Condon MD Physical Exam HEENT: Normocephalic; atraumatic; no jaundice. NECK: Neck is supple, no JVD, no lymphadenopathy. CHEST: CTA CARDIAC: RRR with no murmur gallop or rubs. ABDOMEN: Soft, nondistended, mild diffuse abdominal TTP; no hepatosplenomegaly ; bowel sounds are present. EXTREMITIES: No clubbing, cyanosis, or edema. SKIN: Normal; no rash; no jaundice. SUMMER ANALYST: No focal deficits; alert and oriented times x 3 (Jaida Louise) Assessment and Plan Plan ASSESSMENT: - Enteritis with n/v/d. Pt reports hx of diarrhea x 1-2 months. Stool studies for C. difficile (-), She was evaluated with stool studies, EGD/colonoscopy 1-2 months ago at [facility]. She does not know the physician's name or findings. She has also been on abx for this, although she cannot recall which one. She denies suspicious food, travel, or sick contacts. Abdomen/Pelvis CT (01/18/17) --1. Diffusely fluid-filled loops of nondistended small bowel and proximal colon without a transition point or significant bowel wall thickening. No evidence for bowel infarction or perforation. Overall, findings are most consistent with enteritis. 2. Colonic diverticulosis without definitive evidence for diverticulitis. 3. Asymmetrical renal size with somewhat atrophic appearing right kidney containing small punctate calcifications in the midpole which may reflect nonobstructing calyceal calculi. Cipro/Flagyl. Celiac panel pending. Patient reports increased fatigue and decreased appetite today. HH stable, 12.3/36.4. - Leukocytosis. WBC 14.6. blood cx no growth in 3 days, Flagyl and Cipro - Acute kidney injury with multiple electrolyte abnormalities. improving IVF - Coronary artery disease, hypertension. S/P Cardiac cath with stenting, on Plavix - OA, DM, Hx breast cancer per attending. Also on heparin for DVT proph. 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 30 years ago PLAN: - Full liquids - PPI - IV fluids - Cipro/Flagyl - Await celiac panel - Monitor labs - Supportive care - Await records from [facility], recent EGD/colonoscopy and pathology - Further recommendations to follow based on results of above. Patient seen and examined by Dr. Lenz and myself and this note is written on her behalf (Jaida Louise) Physician Comments seen, examined agree with above (Basia Lenz MD) AspenStampsallison LAUGHLINP Jan 21, 2017 15:11 Basia Lenz MD Jan 21, 2017 20:35
[2017-01-21] MEDS: CIPROFLOXACIN 400 MG PREMIX 200 ML IV SCH (16:51)
[2017-01-21 20:54] VITALS: BP 169/85; PULSE 91; RESP 20; TEMP 97.9; O2SAT 98
[2017-01-21 21:51] LABS: AUTOMATED NEUTROPHIL # 10.6 TH/MM3 (1.8-7.7); BASOPHIL # 0.1 TH/MM3 (0-0.2); BASOPHIL % 0.7 % (0.0-2.0); EOSINOPHIL # 0.2 TH/MM3 (0-0.4); EOSINOPHIL % 1.8 % (0.0-4.0); HEMATOCRIT 33.8 % (35.0-46.0); HEMO FLAGS DIFF FINAL; LYMPH % 12.4 % (9.0-44.0); LYMPHOCYTE # 1.7 TH/MM3 (1.0-4.8); MEAN CELL VOLUME 91.6 FL (80.0-100.0); MEAN CORPUSCULAR HEMOGLOBIN 30.7 PG (27.0-34.0); MEAN CORPUSCULAR HGB CONC 33.5 % (32.0-36.0); MONO % 7.2 % (0.0-8.0); NEUT % 77.9 % (16.0-70.0); PLATELET COUNT 385 TH/MM3 (150-450); RED BLOOD COUNT 3.69 MIL/MM3 (4.00-5.30); RED CELL DISTRIBUTION WIDTH 18.5 % (11.6-17.2); WHITE BLOOD COUNT 13.7 TH/MM3 (4.0-11.0)
[2017-01-21 22:12] LABS: BICARBONATE 13.4 MEQ/L (21.0-32.0); POTASSIUM 4.4 MEQ/L (3.5-5.1)
[2017-01-21 22:21] LABS: CALCIUM-PROTEIN CORRECTED 8.3 MG/DL (8.5-10.1); TOTAL BILIRUBIN ADULT 0.2 MG/DL (0.2-1.0)
[2017-01-21] MEDS: SODIUM CHLORIDE 0.9% FLUSH 10 ML FLUSH IV FLUSH PRN (22:29)
[2017-01-21] MEDS: ATORVASTATIN 80 MG TAB PO SCH (22:29)
[2017-01-21] MEDS: MIRTAZAPINE 15 MG TAB PO SCH (22:30)
[2017-01-21 23:07] LABS: C. DIFF EPI 027 PRESUMPTIVE NEGATIVE (NEGATIVE); C. DIFF TOXIN PCR NEGATIVE (NEGATIVE)
[2017-01-22] MEDS: metroNIDAZOLE 500 MG INJ 100 ML IV SCH ×3 (00:10→16:07)
[2017-01-22 00:49] VITALS: BP 146/62; PULSE 76; RESP 18; TEMP 97.4; O2SAT 98
[2017-01-22 04:47] VITALS: BP 148/65; PULSE 79; RESP 19; TEMP 97.4; O2SAT 97
[2017-01-22] MEDS: HEPARIN SODIUM - SQ 10,000 UNITS/ML VIAL SQ SCH ×2 (06:34→17:10)
[2017-01-22] MEDS: CLOPIDOGREL 75 MG TAB PO SCH (07:48)
[2017-01-22] MEDS: PANTOPRAZOLE SODIUM 40 MG VIAL IV PUSH SCH (07:48)
[2017-01-22] MEDS: ASPIRIN EC 81 MG TABEC PO SCH (07:49)
[2017-01-22 09:05] VITALS: BP 153/69; PULSE 84; RESP 16; TEMP 97.1; O2SAT 97
[2017-01-22] MEDS: ONDANSETRON HCL 4 MG/2 ML VIAL IVP PRN ×2 (09:50→18:07)
[2017-01-22 12:53] VITALS: BP 145/64; PULSE 80; RESP 16; TEMP 97.6; O2SAT 99
[2017-01-22] MEDS ORDERED: LOPERAMIDE HCL 2 MG CAP PO PRN (15:00)
[2017-01-22] MEDS: NS + KCL 20 MEQ INJ 1,000 ML IV SCH (16:05)
--- NOTE | 2017-01-22 16:41 | HHI.PR ---
Subjective Remarks Follow-up on enteritis. Patient says she feels worse today, says she doesn't feel like eating. Nursing does report the patient had some nausea and diarrhea today that was new. Patient is not asking for Zofran despite emphasis to do so. Says her appetite did not pick up and delivery driver. is at bedside today. Patient does report having of past medical history of some surgery that sounds as if she had lysis of adhesions and a re-anastomosis of some sort. Objective Vital Signs Date Time Temp Pulse Resp B/P Pulse Ox O2 Delivery O2 Flow Rate FiO2 01/22/17 12:53 97.6 80 16 145/64 99 01/22/17 09:05 97.1 84 16 153/69 97 01/22/17 04:47 97.4 79 19 148/65 97 01/22/17 00:49 97.4 76 18 146/62 98 01/21/17 20:54 97.9 91 20 169/85 98 I/O 01/21/17 01/21/17 01/21/17 01/22/17 01/22/17 01/22/17 07:00 15:00 23:00 07:00 15:00 23:00 Intake Total 95 ml Balance 95 ml IV Total 95 ml # Voids 1 1 2 # Bowel Movements 2 1 1 Result Diagram: 01/21/17199901/21/171999 Objective Remarks GENERAL: Elderly female, lying in bed CARDIOVASCULAR: Regular rate and rhythm without murmurs, gallops, or rubs. RESPIRATORY: Breath sounds equal bilaterally. No accessory muscle use. GASTROINTESTINAL: Abdomen soft, nondistended, does have mild diffuse tenderness to palpation, bowel sounds positive and normal pitch MUSCULOSKELETAL: No cyanosis, or edema. A/P Assessment and Plan 1. Abdominal pain, diarrhea: Originally improved, now recurring. Repeat C. difficile is negative. Continue Cipro Flagyl and IV fluids. Unable to obtain CT with contrast due to allergy. Contacted GI who will see the patient shortly. Outside records have not arrived regarding patient's most recent colonoscopy. procalcitonin ordered along w/ repeat labs for AM. 2. Decreased appetite -likely reason is abdominal pain and diarrhea, continue Remeron. 3. Coronary artery disease: Continue Plavix, aspirin. Currently asymptomatic. 4. Hyperlipidemia: Continue statin. 5. Hypertension: Hold ARB/calcium channel ira/HCTZ secondary to dehydration. Continue amlodipine. Hold ARB secondary to acute kidney injury. 6. Acute kidney injury: likely resolved given IVF, will check labs as above Generalized weakness: TSH not significantly abnormal, iron is within normal limits, electrolytes within normal limits. We'll have PT reassess the patient and order CPK. 7. DVT prophylaxis: Heparin. Bernice, MICHAEL membreno. 8. GI prophylaxis: Protonix. Preet Chen MD Jan 22, 2017 16:41
[2017-01-22] MEDS ORDERED: SODIUM CHLOR 0.9% 1000 ML INJ 1,000 ML IV ONE (17:00)
[2017-01-22] MEDS: DEXT 5%-NACL 0.45% 1000 ML INJ 1,000 ML IV SCH (17:13)
[2017-01-22] MEDS: CIPROFLOXACIN 400 MG PREMIX 200 ML IV SCH (17:14)
[2017-01-22 17:22] VITALS: BP 134/63; PULSE 76; RESP 16; TEMP 97.8; O2SAT 100
--- NOTE | 2017-01-22 17:29 | HHI.GIFU ---
Subjective Remarks Pt resting in bed. States her symptoms were improving, but now with worsening nausea, diarrhea, generalized fatigue. Poor po intake. Objective Vitals I&O Vital Signs Date Time Temp Pulse Resp B/P Pulse Ox O2 Delivery O2 Flow Rate FiO2 01/22/17 12:53 97.6 80 16 145/64 99 01/22/17 09:05 97.1 84 16 153/69 97 01/22/17 04:47 97.4 79 19 148/65 97 01/22/17 00:49 97.4 76 18 146/62 98 01/21/17 20:54 97.9 91 20 169/85 98 I/O 01/21/17 01/21/17 01/21/17 01/22/17 01/22/17 01/22/17 07:00 15:00 23:00 07:00 15:00 23:00 Intake Total 95 ml Balance 95 ml IV Total 95 ml # Voids 1 1 2 1 # Bowel Movements 2 1 1 Laboratory Laboratory Tests Test 01/21/17 01/21/17 19:40 20:00 Stool C. difficile Toxin (PCR) NEGATIVE Stl C. difficile Toxin PRESUMPTIVE Epiderm 027 NEGATIVE White Blood Count 13.7 Red Blood Count 3.69 Hemoglobin 11.3 Hematocrit 33.8 Mean Corpuscular Volume 91.6 Mean Corpuscular Hemoglobin 30.7 Mean Corpuscular Hemoglobin 33.5 Concent Red Cell Distribution Width 18.5 Platelet Count 385 Mean Platelet Volume 9.0 Neutrophils (%) (Auto) 77.9 Lymphocytes (%) (Auto) 12.4 Monocytes (%) (Auto) 7.2 Eosinophils (%) (Auto) 1.8 Basophils (%) (Auto) 0.7 Neutrophils # (Auto) 10.6 Lymphocytes # (Auto) 1.7 Monocytes # (Auto) 1.0 Eosinophils # (Auto) 0.2 Basophils # (Auto) 0.1 CBC Comment DIFF FINAL Differential Comment Sodium Level 139 Potassium Level 4.4 Chloride Level 116 Carbon Dioxide Level 13.4 Anion Gap 10 Blood Urea Nitrogen 23 Creatinine 0.93 Estimat Glomerular Filtration 57 Rate Random Glucose 117 Calcium Level 6.8 Protein Corrected Calcium 8.3 Iron Level 72 Total Bilirubin 0.2 Aspartate Amino Transf 37 (AST/SGOT) Alanine Aminotransferase 23 (ALT/SGPT) Alkaline Phosphatase 129 Total Protein 4.3 Albumin 1.5 Thyroid Stimulating Hormone 4.130 3rd Gen Date/Time Procedure Status Source Growth 01/18/17 17:00 Urine Culture - Final Complete Urine Random Urine Enterococcus Faecalis 01/18/17 14:20 Aerobic Blood Culture - Preliminary Resulted Blood Peripheral NO GROWTH IN 4 DAYS 01/18/17 14:20 Anaerobic Blood Culture - Preliminary Resulted Blood Peripheral NO GROWTH IN 4 DAYS Imaging Last Impressions Abdomen/Pelvis CT 01/18/17 0000 Signed Impressions: Service Date/Time: January 14:36 - CONCLUSION: 1. Diffusely fluid-filled loops of nondistended small bowel and proximal colon without a transition point or significant bowel wall thickening. No evidence for bowel infarction or perforation. Overall, findings are most consistent with enteritis. 2. Colonic diverticulosis without definitive evidence for diverticulitis. 3. Asymmetrical renal size with somewhat atrophic appearing right kidney containing small punctate calcifications in the midpole which may reflect nonobstructing calyceal calculi. Bal Condon MD Physical Exam HEENT: Normocephalic; atraumatic; no jaundice. CHEST: CTA CARDIAC: RRR with no murmur gallop or rubs. ABDOMEN: Soft, nondistended, mild diffuse tenderness, no hepatosplenomegaly; bowel sounds are present. EXTREMITIES: No clubbing, cyanosis, or edema. SKIN: Normal; no rash; no jaundice. JEEPER OPERATOR: No focal deficits; alert and oriented times x 3 Assessment and Plan Plan ASSESSMENT: - Enteritis with n/v/d. Pt reports hx of diarrhea x 1-2 months. She has also been on abx for this, although she cannot recall which one. She denies suspicious food, travel, or sick contacts. Stool studies for C. difficile (-), Stool studies were not sent and per hospital protocol- enteric pathogens and ova and parasite cannot be sent, as the patient has been in patient > 3 days. She was evaluated with stool studies and EGD/colonoscopy 1-2 months ago. She originally told me this was [place], but now states that it was [place]- although she cannot tell me the physician's name or findings. Abdomen/ Pelvis CT (01/18/17)--1. Diffusely fluid-filled loops of nondistended small bowel and proximal colon without a transition point or significant bowel wall thickening. No evidence for bowel infarction or perforation. Overall, findings are most consistent with enteritis. 2. Colonic diverticulosis without definitive evidence for diverticulitis. 3. Asymmetrical renal size with somewhat atrophic appearing right kidney containing small punctate calcifications in the midpole which may reflect nonobstructing calyceal calculi. Cipro/Flagyl. Celiac panel pending. Patient with worsening symptoms- fatigue, decreased po , nausea, and diarrhea- 2 loose stools today. Rpt. CDiff negative. WBC increased to 13.7. Imodium. - Leukocytosis. WBC 13.7, blood cx no growth in 4 days, Urine with enterococcus faecalis- Flagyl and Cipro - UTI, Enterococcus faecalis. Cipro in - Acute kidney injury with multiple electrolyte abnormalities. Improving. - Coronary artery disease, hypertension. S/P Cardiac cath with stenting, on Plavix - OA, DM, Hx breast cancer per attending. Also on heparin for DVT proph. 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 PPI - Cont. Flagyl - Cont. IVF - Await celiac panel - Monitor labs - Consider changing cipro to another abx, as susceptibility is indeterminate with E. Faecalis, will defer to attending. - Supportive care - Further recommendations to follow based on results of repeat CT scan - Pt does not know what operations intelligence superintendent performed recent egd/colonoscopy. Originally said was at [facility] in [place], now says in [facility]. - Patient seen and examined by and myself and this note is written on his behalf Aleksandra Gayle Jan 22, 2017 17:29
[2017-01-22] MEDS ORDERED: DIATRIZOATE MEGLUM/DIATRIZOATE SOD 9 ML CUP PO ONE (18:00)
[2017-01-22] MEDS: LACTOBACILLUS ACIDOPHILUS TAB PO SCH (18:07)
[2017-01-22 20:00] VITALS: BP 130/70; PULSE 88; RESP 20; TEMP 97.8; O2SAT 98
[2017-01-22] MEDS: ATORVASTATIN 80 MG TAB PO SCH (21:15)
[2017-01-22] MEDS: MIRTAZAPINE 15 MG TAB PO SCH (21:15)
[2017-01-23] MEDS: traMADol HCL 50 MG TAB PO PRN ×2 (00:42→22:29)
--- NOTE | 2017-01-23 01:44 | RADRPT ---
EXAM DATE/TIME: 01/23/2017 01:24 [place] COMPARISON: CT ABDOMEN & PELVIS W/O CONTRAST, January 18, 2017, 14:36. INDICATIONS : Worsening diarrhea and nausea. ORAL CONTRAST: Partial prescribed oral contrast ingested. RADIATION DOSE: 9.96 CTDIvol (mGy) MEDICAL HISTORY : Breast cancer. SURGICAL HISTORY : Hysterectomy. Pacemaker.Appendectomy.Cholecystectomy. Mastectomy. ENCOUNTER: Initial ACUITY: 1 day PAIN SCALE: 6/10 LOCATION: abdomen TECHNIQUE: Volumetric scanning of the abdomen and pelvis was performed. Using automated exposure control and ad justment of the mA and/or kV according to patient size, radiation dose was kept as low as reasonably achievable to obtain optimal diagnostic quality images. DICOM format image data is available electro nically for review and comparison. FINDINGS: There are now identified bilateral pleural effusions. There is dense calcification of the mitral anul us and a moderate hiatal hernia. There is ascites identified in the perihepatic region. The spleen, p ancreas, adrenal glands are unremarkable. Atrophic right kidney with nonobstructing punctate calculi. There is a hemorrhagic cyst of the left lower pole kidney again seen. Atherosclerotic calcifications of the aorta and iliac vessels. Small fat-containing inguinal hernias. Diffuse body wall edema. Ther e is consolidation in the left lower lobe. The osseous structures demonstrate degenerative changes of the spine. There is diverticulosis of the sigmoid colon. There is no evidence of bowel obstruction. CONCLUSION: 1. Diverticulosis. 2. Bilateral effusions and left basilar consolidation now seen. 3. Ascites and body wall edema. 4. Hiatal hernia. 5. Hemorrhagic cyst left kidney. Andrea Burr MD on January 23, 2017 at 1:41 Board Certified Radiologist. This report was verified electronically.
[2017-01-23] MEDS: metroNIDAZOLE 500 MG INJ 100 ML IV SCH ×3 (01:55→16:16)
[2017-01-23 04:00] VITALS: BP 125/59; PULSE 84; RESP 20; TEMP 98.5; O2SAT 97
[2017-01-23] MEDS: HEPARIN SODIUM - SQ 10,000 UNITS/ML VIAL SQ SCH ×2 (06:36→17:38)
[2017-01-23 08:00] VITALS: BP 127/70; PULSE 81; RESP 18; TEMP 97.4; O2SAT 99
[2017-01-23] MEDS: ASPIRIN EC 81 MG TABEC PO SCH (08:46)
[2017-01-23] MEDS: CLOPIDOGREL 75 MG TAB PO SCH (08:46)
[2017-01-23] MEDS: LACTOBACILLUS ACIDOPHILUS TAB PO SCH ×3 (08:46→17:37)
[2017-01-23] MEDS: PANTOPRAZOLE SODIUM 40 MG VIAL IV PUSH SCH (08:47)
[2017-01-23 09:09] LABS: AUTOMATED NEUTROPHIL # 11.3 TH/MM3 (1.8-7.7); BASOPHIL # 0.1 TH/MM3 (0-0.2); BASOPHIL % 0.5 % (0.0-2.0); EOSINOPHIL # 0.4 TH/MM3 (0-0.4); EOSINOPHIL % 2.7 % (0.0-4.0); HEMATOCRIT 34.3 % (35.0-46.0); HEMO FLAGS DIFF FINAL; LYMPH % 14.7 % (9.0-44.0); LYMPHOCYTE # 2.3 TH/MM3 (1.0-4.8); MEAN CELL VOLUME 90.3 FL (80.0-100.0); MEAN CORPUSCULAR HEMOGLOBIN 30.9 PG (27.0-34.0); MEAN CORPUSCULAR HGB CONC 34.2 % (32.0-36.0); MONO % 11.2 % (0.0-8.0); NEUT % 70.9 % (16.0-70.0); PLATELET COUNT 322 TH/MM3 (150-450); RED CELL DISTRIBUTION WIDTH 18.3 % (11.6-17.2); WHITE BLOOD COUNT 15.9 TH/MM3 (4.0-11.0)
[2017-01-23 09:15] LABS: BICARBONATE 15.1 MEQ/L (21.0-32.0); POTASSIUM 3.9 MEQ/L (3.5-5.1)
[2017-01-23 09:38] LABS: CALCIUM-PROTEIN CORRECTED 8.3 MG/DL (8.5-10.1)
[2017-01-23 12:00] VITALS: BP 136/65; PULSE 80; RESP 16; TEMP 97.6; O2SAT 98
[2017-01-23] MEDS: CIPROFLOXACIN 400 MG PREMIX 200 ML IV SCH (15:08)
--- NOTE | 2017-01-23 15:53 | HHI.GIFU ---
Subjective Remarks Pt extremely upset and tearful- just received from bad news regarding her - that he has cancer and they can only do so much to treat this. She is very upset and requesting something to calm her down. She has poor po intake- but taking small amounts. No vomiting today. No diarrhea. No abdominal pain. Objective Vitals I&O Vital Signs Date Time Temp Pulse Resp B/P Pulse Ox O2 Delivery O2 Flow Rate FiO2 01/23/17 12:00 97.6 80 16 136/65 98 01/23/17 08:00 97.4 81 18 127/70 99 01/23/17 04:00 98.5 84 20 125/59 97 01/22/17 20:00 97.8 88 20 130/70 98 01/22/17 17:22 97.8 76 16 134/63 100 I/O 01/22/17 01/22/17 01/22/17 01/23/17 01/23/17 01/23/17 07:00 15:00 23:00 07:00 15:00 23:00 Intake Total 95 ml 970 ml Balance 95 ml 970 ml Intake Oral 480 ml IV Total 95 ml 490 ml # Voids 2 1 2 2 # Bowel Movements 1 1 1 1 Laboratory Laboratory Tests Test 01/22/17 01/23/17 01/23/17 17:12 06:50 06:52 Procalcitonin 0.06 White Blood Count 15.9 Red Blood Count 3.80 Hemoglobin 11.7 Hematocrit 34.3 Mean Corpuscular Volume 90.3 Mean Corpuscular Hemoglobin 30.9 Mean Corpuscular Hemoglobin 34.2 Concent Red Cell Distribution Width 18.3 Platelet Count 322 Mean Platelet Volume 9.1 Neutrophils (%) (Auto) 70.9 Lymphocytes (%) (Auto) 14.7 Monocytes (%) (Auto) 11.2 Eosinophils (%) (Auto) 2.7 Basophils (%) (Auto) 0.5 Neutrophils # (Auto) 11.3 Lymphocytes # (Auto) 2.3 Monocytes # (Auto) 1.8 Eosinophils # (Auto) 0.4 Basophils # (Auto) 0.1 CBC Comment DIFF FINAL Differential Comment Sodium Level 136 Potassium Level 3.9 Chloride Level 111 Carbon Dioxide Level 15.1 Anion Gap 10 Blood Urea Nitrogen 14 Creatinine 0.77 Estimat Glomerular Filtration 71 Rate Random Glucose 93 Calcium Level 6.8 Protein Corrected Calcium 8.3 Total Creatine Kinase 120 Total Protein 4.3 Date/Time Procedure Status Source Growth 01/18/17 17:00 Urine Culture - Final Complete Urine Random Urine Enterococcus Faecalis Imaging Last Impressions Abdomen/Pelvis CT 01/22/17 0000 Signed Impressions: Service Date/Time: Monday, January 23, 2017 01:24 - CONCLUSION: 1. Diverticulosis. 2. Bilateral effusions and left basilar consolidation now seen. 3. Ascites and body wall edema. 4. Hiatal hernia. 5. Hemorrhagic cyst left kidney. Andrea Burr MD Physical Exam HEENT: Normocephalic; atraumatic; no jaundice. CHEST: CTA CARDIAC: RRR with no murmur gallop or rubs. ABDOMEN: Soft, nondistended, nontender, no hepatosplenomegaly; bowel sounds are present. EXTREMITIES: No clubbing, cyanosis, or edema. SKIN: Generalized pallor CROSSING FLAGMAN: Upset and tearful, states she just received bad news regarding her . Assessment and Plan Plan ASSESSMENT: - Enteritis with n/v/d. Pt reports hx of diarrhea x 1-2 months. She has also been on abx for this, although she cannot recall which one. She denies suspicious food, travel, or sick contacts. Stool studies for C. difficile (-), Stool studies were not sent and per hospital protocol- enteric pathogens and ova and parasite cannot be sent, as the patient has been in patient > 3 days. She was evaluated with stool studies and EGD/colonoscopy 1-2 months ago. She originally told me this was [place], but now states that it was [facility]- although she cannot tell me the physician's name or findings. Abdomen/ Pelvis CT (01/18/17)--1. Diffusely fluid-filled loops of nondistended small bowel and proximal colon without a transition point or significant bowel wall thickening. No evidence for bowel infarction or perforation. Overall, findings are most consistent with enteritis. 2. Colonic diverticulosis without definitive evidence for diverticulitis. 3. Asymmetrical renal size with somewhat atrophic appearing right kidney containing small punctate calcifications in the midpole which may reflect nonobstructing calyceal calculi. Pt was improving, but had worsening djiarrhea, fatigue, decreased po. Rpt CT scan abdomen and pelvis (01/23/17)-----> 1. Diverticulosis. 2. Bilateral effusions and left basilar consolidation now seen. 3. Ascites and body wall edema. 4. Hiatal hernia. 5. Hemorrhagic cyst left kidney. Cipro/Flagyl. Celiac panel pending. WBC slowly trending down, 15.9 today. Still with poor po intake, but no n/v today and no episodes of diarrhea. Did try to d/w patient possible evaluation with EGD/Colonoscopy for further evaluation, but she is too upset and states she cannot think about it at this time. Will add ensure to meals. - Leukocytosis. WBC slowly rising, WBC 15.9. CT unremarkable for abdomen- does have bilateral effusions and left basilar consolidation now. Blood cx no growth in 5 days, Urine with enterococcus faecalis, Flagyl and Cipro - UTI, Enterococcus faecalis. Flagyl, Cipro. - Acute kidney injury with multiple electrolyte abnormalities. Improving. - Coronary artery disease, hypertension. S/P Cardiac cath with stenting, on Plavix - OA, DM, Hx breast cancer per attending. Also on heparin for DVT proph. 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 Probiotics - Cont. PPI - Cipro/Flagyl - Cont. IVF - Await celiac panel - Monitor labs - Supportive care - Consider EGD/Colonoscopy if no improvement. Her nausea/diarrhea has improved today, but she continues to have poor po intake. Attempted to d/w patient this, but she is very upset, as she just received some bad news regarding her 's cancer and states she is too upset to think about anything right now. - Patient seen and examined by and myself and this note is written on his behalf Aleksandra Gayle Jan 23, 2017 15:53
[2017-01-23 16:00] VITALS: BP 158/87; PULSE 92; RESP 16; TEMP 97.2; O2SAT 97
[2017-01-23] MEDS ORDERED: LORazepam 2 MG/ML VIAL IV PUSH ONE (16:00)
[2017-01-23] MEDS: DEXT 5%-NACL 0.45% 1000 ML INJ 1,000 ML IV SCH (16:49)
--- NOTE | 2017-01-23 17:26 | HHI.PR ---
Subjective Remarks Follow-up on enteritis/diarrhea/weakness. Nursing reports that her diarrhea is less today. However patient is becoming a poorer and poor historian as the days go by. Today i was informed that by nursing that the patient found out that her was just diagnosed with some sort of cancer and she has become very stressed out - needed low dose ativan x1. When asking questions, she can answer them directly, her history providing skills are essentially compromised at this time. Nursing again reports that she is not eating much, when asked about pain the patient is a very poor historian. When asked about how she thinks she has progressed, again she is confused about the question. Iron level, CK level are within normal limits, TSH is slightly elevated at 4.3. When asked if she is sad, pt appears to look with a confused stare and eventually speaks to a different subject. Objective Vital Signs Date Time Temp Pulse Resp B/P Pulse Ox O2 Delivery O2 Flow Rate FiO2 01/23/17 16:00 97.2 92 16 158/87 97 01/23/17 12:00 97.6 80 16 136/65 98 01/23/17 08:00 97.4 81 18 127/70 99 01/23/17 04:00 98.5 84 20 125/59 97 01/22/17 20:00 97.8 88 20 130/70 98 01/22/17 17:22 97.8 76 16 134/63 100 I/O 01/22/17 01/22/17 01/22/17 01/23/17 01/23/17 01/23/17 07:00 15:00 23:00 07:00 15:00 23:00 Intake Total 95 ml 970 ml Balance 95 ml 970 ml Intake Oral 480 ml IV Total 95 ml 490 ml # Voids 2 1 2 2 # Bowel Movements 1 1 1 1 Result Diagram: 01/23/17 0650 01/23/17 0652 Objective Remarks GENERAL: Elderly female, lying in bed CARDIOVASCULAR: Regular rate and rhythm without murmurs, gallops, or rubs. RESPIRATORY: Breath sounds equal bilaterally and clear GASTROINTESTINAL: Abdomen soft, nondistended, mild diffuse tenderness to palpation MUSCULOSKELETAL: 4/5 strength proximally in 4 extremities, very thin legs PSYCH: appears very sad A/P Assessment and Plan 86-year-old white female admitted with abdominal pain and prolonged diarrhea along with subjective weight loss. Originally symptoms had improved after admission --> suddenly recurred preventing discharge --> slightly improved today. Repeat C. difficile is negative, stool workup also negative. Celiac panel pending Has been on Cipro Flagyl and IV fluids since admission. GI following, repeat contrast CT abdomen and pelvis is unremarkable (unable to do IV due to allergy). Patient's mood has become more withdrawn and sad. 1. Abdominal pain, diarrhea: Cipro Flagyl and IV fluids. recheck white count tomorrow - fluctuating. 2. Decreased appetite and poor sleep - suspect depression now with recently started Remeron. Checking free T4 and B12. Consulting psychiatry for complete evaluation as I want to optimize her mood status as I feel that this is playing a pivotal role in her medical recovery and playing of barrier towards discharge. ordering speech for cognition evaluation. 3. Slowed mentation - checking vitamin B12, phosphorus. CK within normal limits. 4. Coronary artery disease: Continue Plavix, aspirin. Currently asymptomatic. 4. Hyperlipidemia: Continue statin. 5. Hypertension: stable, Continue amlodipine. 7. DVT prophylaxis: Heparin. Knees, MICHAEL taylore. 8. GI prophylaxis: Protonix. Preet Chen MD Jan 23, 2017 17:26
[2017-01-23 19:25] LABS: FREE T4 2.59 NG/DL (0.76-1.46)
[2017-01-23 20:30] VITALS: BP 118/77; PULSE 126; RESP 17; TEMP 97.6; O2SAT 98
[2017-01-23] MEDS: MIRTAZAPINE 15 MG TAB PO SCH (22:30)
[2017-01-23] MEDS: ATORVASTATIN 80 MG TAB PO SCH (22:30)
[2017-01-24] VITALS (7 sets, daily range): BP systolic 114–189; BP diastolic 56–100; PULSE 81–99; RESP 18–20; TEMP 97.2–98.7; O2SAT 92–100
[2017-01-24] MEDS: metroNIDAZOLE 500 MG INJ 100 ML IV SCH ×3 (00:22→17:00)
[2017-01-24] MEDS: DEXT 5%-NACL 0.45% 1000 ML INJ 1,000 ML IV SCH (02:23)
[2017-01-24] MEDS: HEPARIN SODIUM - SQ 10,000 UNITS/ML VIAL SQ SCH ×2 (05:57→18:33)
[2017-01-24] MEDS: PANTOPRAZOLE SODIUM 40 MG VIAL IV PUSH SCH (08:54)
[2017-01-24] MEDS: CLOPIDOGREL 75 MG TAB PO SCH (08:55)
[2017-01-24] MEDS: ASPIRIN EC 81 MG TABEC PO SCH (08:55)
[2017-01-24] MEDS: LACTOBACILLUS ACIDOPHILUS TAB PO SCH ×3 (08:55→18:32)
[2017-01-24 10:55] LABS: AUTOMATED NEUTROPHIL # 10.3 TH/MM3 (1.8-7.7); BASOPHIL # 0.1 TH/MM3 (0-0.2); BASOPHIL % 0.5 % (0.0-2.0); EOSINOPHIL # 0.6 TH/MM3 (0-0.4); EOSINOPHIL % 4.1 % (0.0-4.0); HEMATOCRIT 36.7 % (35.0-46.0); HEMO FLAGS DIFF FINAL; LYMPHOCYTE # 2.1 TH/MM3 (1.0-4.8); MEAN CELL VOLUME 93.5 FL (80.0-100.0); MEAN CORPUSCULAR HEMOGLOBIN 30.2 PG (27.0-34.0); MEAN CORPUSCULAR HGB CONC 32.3 % (32.0-36.0); MONO % 11.6 % (0.0-8.0); NEUT % 69.8 % (16.0-70.0); PLATELET COUNT 355 TH/MM3 (150-450); RED BLOOD COUNT 3.93 MIL/MM3 (4.00-5.30); RED CELL DISTRIBUTION WIDTH 18.4 % (11.6-17.2); WHITE BLOOD COUNT 14.7 TH/MM3 (4.0-11.0)
[2017-01-24 13:52] LABS: IGA SERUM 322 mg/dL (81-463); TISSUE TRANSGLUTAMINASE AB IGG ND U/mL (())
--- NOTE | 2017-01-24 15:01 | HHI.GIFU ---
Subjective Remarks Late entry from 0840 this am. I saw patient while she was eating breakfast- had all of corn flakes and was working on bagel/eggs when I evaluated patient. States she is feeling better. No n/v today. Reports that she had one bowel movement yesterday, none today. No n/v, no abdominal pain. Continues to have significant generalized weakness. Objective Vitals I&O Vital Signs Date Time Temp Pulse Resp B/P Pulse Ox O2 Delivery O2 Flow Rate FiO2 01/24/17 12:53 97.2 87 20 114/59 99 01/24/17 08:51 97.4 96 20 136/69 97 01/24/17 05:00 98.2 99 18 150/79 98 01/24/17 00:30 98.0 81 18 126/68 100 01/23/17 23:29 18 01/23/17 20:30 97.6 126 17 118/77 98 01/23/17 16:00 97.2 92 16 158/87 97 I/O 01/23/17 01/23/17 01/23/17 01/24/17 01/24/17 01/24/17 07:00 15:00 23:00 07:00 15:00 23:00 Intake Total 931 ml 240 ml 540 ml Balance 931 ml 240 ml 540 ml Intake Oral 240 ml IV Total 931 ml 540 ml # Voids 2 3 # Bowel Movements 1 Laboratory Laboratory Tests Test 01/24/17 10:07 White Blood Count 14.7 Red Blood Count 3.93 Hemoglobin 11.9 Hematocrit 36.7 Mean Corpuscular Volume 93.5 Mean Corpuscular Hemoglobin 30.2 Mean Corpuscular Hemoglobin 32.3 Concent Red Cell Distribution Width 18.4 Platelet Count 355 Mean Platelet Volume 8.2 Neutrophils (%) (Auto) 69.8 Lymphocytes (%) (Auto) 14.0 Monocytes (%) (Auto) 11.6 Eosinophils (%) (Auto) 4.1 Basophils (%) (Auto) 0.5 Neutrophils # (Auto) 10.3 Lymphocytes # (Auto) 2.1 Monocytes # (Auto) 1.7 Eosinophils # (Auto) 0.6 Basophils # (Auto) 0.1 CBC Comment DIFF FINAL Differential Comment Imaging Last Impressions Abdomen/Pelvis CT 01/22/17 0000 Signed Impressions: Service Date/Time: Georgie, January 23, 2017 01:24 - CONCLUSION: 1. Diverticulosis. 2. Bilateral effusions and left basilar consolidation now seen. 3. Ascites and body wall edema. 4. Hiatal hernia. 5. Hemorrhagic cyst left kidney. Andrea Burr MD Physical Exam HEENT: Normocephalic; atraumatic; no jaundice. CHEST: CTA CARDIAC: RRR with no murmur gallop or rubs. ABDOMEN: Soft, nondistended, nontender, no hepatosplenomegaly; bowel sounds are present. EXTREMITIES: No clubbing, cyanosis, or edema. SKIN: Generalized pallor, multiple ecchymotic areas CUTCH CLEANER: LEthargic, oriented to self and place. Assessment and Plan Plan ASSESSMENT: - Enteritis with n/v/d. Pt reports hx of diarrhea x 1-2 months. She has also been on abx for this, although she cannot recall which one. She denies suspicious food, travel, or sick contacts. Stool studies for C. difficile (-), Stool studies were not sent and per hospital protocol- enteric pathogens and ova and parasite cannot be sent, as the patient has been in patient > 3 days. She was evaluated with stool studies and EGD/colonoscopy 1-2 months ago. She originally told me this was [place], but now states that it was [facility]- although she cannot tell me the physician's name or findings. Abdomen/ Pelvis CT (01/18/17)--1. Diffusely fluid-filled loops of nondistended small bowel and proximal colon without a transition point or significant bowel wall thickening. No evidence for bowel infarction or perforation. Overall, findings are most consistent with enteritis. 2. Colonic diverticulosis without definitive evidence for diverticulitis. 3. Asymmetrical renal size with somewhat atrophic appearing right kidney containing small punctate calcifications in the midpole which may reflect nonobstructing calyceal calculi. Pt was improving, but had worsening djiarrhea, fatigue, decreased po. Rpt CT scan abdomen and pelvis (01/23/17)-----> 1. Diverticulosis. 2. Bilateral effusions and left basilar consolidation now seen. 3. Ascites and body wall edema. 4. Hiatal hernia. 5. Hemorrhagic cyst left kidney. Celiac panel pending. WBC 14.7 today. She is doing better today- when I rounded, she ate her cornflakes and was working on bagel and scrambled eggs. She is still weak, but improved from yesterday. - Leukocytosis. WBC 14.[address] unremarkable for abdomen- does have bilateral effusions and left basilar consolidation now. Blood cx no growth in 5 days, Urine with enterococcus faecalis, Flagyl and Cipro. - UTI, Enterococcus faecalis. Flagyl, Cipro. - Acute kidney injury with multiple electrolyte abnormalities. Improving. - Coronary artery disease, hypertension. S/P Cardiac cath with stenting, on Plavix - OA, DM, Hx breast cancer per attending. Also on heparin for DVT proph. 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 30 years ago PLAN: - [facility] - Ensure TID - Real Estate Investment Analyst evaluation - Cont. Probiotics - Cont. PPI - Cipro/Flagyl - Cont. IVF - Await celiac panel - Monitor labs - Supportive care - Consider EGD/Colonoscopy if no improvement- she does seem improved today, although she still has significnat weakness. She was eating better at breakfast. Diarrhea improved. - Patient seen and examined by and myself and this note is written on his behalf Aleksandra Gayle Jan 24, 2017 15:01
[2017-01-24] MEDS: CIPROFLOXACIN 400 MG PREMIX 200 ML IV SCH (15:49)
--- NOTE | 2017-01-24 16:16 | PD.PSY.CON ---
Provisional Diagnosis Admission Date Jan 18, 2017 at 16:17 History of Present Illness Service Psychiatry Consult Requested By Reason for Consult Depressive symptoms Primary Care Physician [place], III HPI The patient is a 86-year-old woman, domicile with her in [place], no previous psychiatric history, no previous suicide attempts, medical history hypertension, CAD, hyperlipidemia, admitted with abdominal pain and prolonged diarrhea along with subjective weight loss. Originally symptoms had improved after admission, suddenly recurred preventing discharge , slightly improved today. Repeat C. difficile is negative, stool workup also negative. Celiac panel pending Has been on Cipro Flagyl and IV fluids since admission. GI following, repeat contrast CT abdomen and pelvis is unremarkable (unable to do IV due to allergy). Patient's mood has become more withdrawn and sad. Consulted to psychiatry. On psychiatric evaluation patient is sleeping, difficult to arouse, once awakened, patient seems to be distant and guarded. States that she has been feeling sad because her was recently diagnosed with cancer. However, patient denies anhedonia, denies hopelessness, denies helplessness, she expressed her motivation to continue taking her medication and get better. She denies suicidal and was ideation, she denies visual and auditory hallucinations. Towards difficulty sleeping at night, frequent sadness , low energy. However, patient is states that her feelings are normal for her situations and she refuses to take medications for depression. Patient is oriented 3. She denies use of alcohol and drugs. Review of Systems Constitutional: DENIES: Diaphoretic episodes, Fatigue, Fever, Weight gain, Weight loss, Chills, Dizziness, Change in appetite, Night Sweats Endocrine: DENIES: Abnorml menstrual pattern, Heat/cold intolerance, Polydipsia , Polyuria, Polyphagia Ears, nose, mouth, throat: DENIES: Tinnitus, Hearing loss, Vertigo, Nasal discharge, Oral lesions, Throat pain, Hoarseness, Ear Pain, Running Nose, Epistaxis, Sinus Pain, Toothache, Odynophagia Respiratory: DENIES: Apneas, Cough, Snoring, Wheezing, Hemoptysis, Sputum production, Shortness of breath Cardiovascular: DENIES: Chest pain, Palpitations, Syncope, Dyspnea on Exertion , PND, Lower Extremity Edema, Orthopnea, Claudication Gastrointestinal: COMPLAINS OF: Diarrhea, Anorexia, DENIES: Abdominal pain, Black stools, Bloody stools, Constipation, Nausea, Vomiting, Difficulty Swallowing Genitourinary: DENIES: Abnormal vaginal bleeding, Dysmenorrhea, Dyspareunia, Sexual dysfunction, Urinary frequency, Urinary incontinence, Urgency, Hematuria , Dysuria, Nocturia, Vaginal discharge Musculoskeletal: DENIES: Joint pain, Muscle aches, Stiffness, Joint Swelling, Back pain, Neck pain Integumentary: DENIES: Abnormal pigmentation, Pruritus, Rash, Nail changes, Breast masses, Breast skin changes, Nipple discharge Hematologic/lymphatic: DENIES: Bruising, Lymphadenopathy Psychiatric: COMPLAINS OF: Depression, DENIES: Anxiety, Confusion, Mood changes, Hallucinations, Agitation, Suicidal Ideation, Homicidal Ideation, Delusions Past Family Social History Coded Allergies: Codeine (Verified Allergy, Severe, VOMITING, 07/11/11) PER PT'S , PT IS NOT ALLERGIC TO CODEINE Contrast Media (Verified Allergy, Severe, UNKNOWN REACTION, 07/11/11) PER PT'S - SHE IS NOT ALLERGIC TO CONTRAST MEDIA, ONLY IODINE Iodine (Verified Allergy, Severe, HIVES, RASH, 07/11/11) Lortab (Verified Allergy, Severe, VOMITING, 07/11/11) PER PT'S , PT IS NOT ALLERGIC TO LORTAB Percocet (Verified Allergy, Severe, VOMITING, 07/11/11) Sulfa (Verified Allergy, Severe, UNKNOWN REACTION, 07/11/11) PER PT'S , PT IS NOT ALLERGIC TO SULFA Reported Medications Tramadol 50 Mg Tab50 Mg PO BID PRN (PAIN) Ref 0 01/18/17 Clopidogrel (Plavix)75 Mg Tab75 Mg PO DAILY #30 TAB Ref 0 01/18/17 Mirtazapine 30 Mg Tab30 Mg PO HS #30 TAB Ref 0 01/18/17 Temazepam 15 Mg Cap15 Mg PO HS PRN (INSOMNIA) #30 CAP Ref 0 01/18/[address] 81 Mg Tabdr81 Mg PO DAILY Ref 0 01/18/17 Atorvastatin 80 Mg Tab80 Mg PO HS #30 TAB Ref 0 01/18/17 Methenamine Hippurate 1 Gm Tab1 Gm PO DAILY Ref 0 01/18/17 Izwirgmmcn-Ovzstlgafe-Jiywbtfmymwbbpbwhtv (Tribenzor)40-10-12.5 mg Tab1 Tab PO DAILY #30 TAB Ref 0 01/18/17 Omeprazole 20 Mg Tab20 Mg PO DAILY #30 TAB Ref 0 01/18/17 Colesevelam (Welchol)625 Mg Sqs754 Mg PO TID #180 TAB Ref 0 01/18/17 Ondansetron (Zofran)4 Mg Tab4 Mg PO Q4HR PRN (NAUSEA OR VOMITING) Ref 0 01/18/17 Current Medications Medications (Trade) Dose Ordered Sig/Kim Route Start Time Stop Time Status Last Admin (NS Flush) 2 ml UNSCH PRN IV FLUSH 01/18/17 13:45 01/21/17 22:29 (Zofran Inj) 4 mg Q6H PRN IVP 01/18/17 17:30 01/22/17 18:07 (Heparin Inj) 5,000 units Q12H SQ 01/18/17 18:00 01/24/17 05:57 (Narcan Inj) 0.4 mg UNSCH PRN IV 01/18/17 17:30 (Milk Of Magnesia Liq) 30 ml Q12H PRN PO 01/18/17 17:30 (Senokot) 17.2 mg Q12H PRN PO 01/18/17 17:30 (Dulcolax Supp) 10 mg DAILY PRN RECTAL 01/18/17 17:30 (Lactulose Liq) 30 ml DAILY PRN PO 01/18/17 17:30 (Tylenol) 650 mg Q4H PRN PO 01/18/17 17:30 01/23/17 06:43 Acetaminophen 650 mg 650 mg Q6H PRN PO 01/18/17 17:30 01/20/17 22:56 Ciprofloxacin/ Dextrose 200 ml @ 200 mls/hr Q24H IV 01/19/17 16:00 01/24/17 15:49 (Flagyl 500 Mg Inj) 100 ml @ 100 mls/hr Q8H IV 01/19/17 00:00 01/24/17 08:56 (Ecotrin Ec) 81 mg DAILY PO 01/19/17 09:00 01/24/17 08:55 (Lipitor) 80 mg HS PO 01/18/17 21:00 01/23/17 22:30 (Plavix) 75 mg DAILY PO 01/19/17 09:00 01/24/17 08:55 (Protonix Inj) 40 mg DAILY IV PUSH 01/19/17 09:00 01/24/17 08:54 (Ultram) 50 mg Q8H PRN PO 01/18/17 18:00 01/23/17 22:29 (Remeron) 15 mg HS PO 01/21/17 21:00 01/23/17 22:30 Loperamide HCl 2 mg 2 mg Q6H PRN PO 01/22/17 15:00 01/22/17 16:07 (D5W-1/2 NS 1000 ml Inj) 1,000 ml @ 42 mls/hr [id number] IV 01/22/17 17:00 01/24/17 02:23 (Lactinex) 1 tab TID PO 01/22/17 18:00 01/24/17 13:59 Family History She denies family psychiatric history Social History Patient was born in [place], she lives in [place], , retired, highest level of education is high school Physical Exam Vital Signs Vital Signs Date Time Temp Pulse Resp B/P Pulse Ox O2 Delivery O2 Flow Rate FiO2 01/24/17 12:53 97.2 87 20 114/59 99 01/20/17 12:44 21 I/O 01/23/17 01/23/17 01/23/17 07:59 15:59 23:59 Intake Total 931 ml Balance 931 ml Mental Status Examination Appearance Elderly woman, age appearing, hospital [facility], distant, guarded, poorly cooperative Speech: Unremarkable Orientation: x3 Memory: Unremarkable Thought Process: Logical Thought Content: Unremarkable Hallucination Type: None Suicidal Ideation: No Homicidal Ideation: No Previous Homicide Attempts: No Judgment: WNL Affect: Sad Affect if Inappropriate: Blunt Mood: Sad Motor Activity: Normal gait Assessment & Plan Problem List: (1) Adjustment disorder with depressed mood Assessment & Plan: On psychiatric evaluation today patient seems to be hypoactive, with marked psychomotor retardation, she reports sad mood related with recent diagnosis of cancer of her and her underlying medical situation. The [place], patient denies hopelessness, she denies anhedonia, she denies helplessness, she denies worthlessness, denies suicidal and was ideation , she denies visual and auditory hallucinations. Patient also reports good sleeping at night, low level of energy, poor appetite that she says that are symptoms are secondary with her hospitalization and medical conditions. I offered a medication to help with sleep and mood, but patient declines taking medication stating that her feelings are appropriate for her situation. No cognitive impairment present at this moment. Extensive supportive psychotherapy , motivation and psychoeducation provided. No psychiatric admission indicated at this moment. Consult appreciated. ICD Code: F43.21 Assessment & Plan Estimated LOS: Felipe Bills MD Jan 24, 2017 16:16
--- NOTE | 2017-01-24 19:18 | HHI.PR ---
Subjective Remarks Follow-up on enteritis/diarrhea/weakness. Patient says her diarrhea is less today. Appears to smile more today than she does yesterday, is far more oriented today than yesterday. She states that she was told she could not have an MRI due to a "pacer". Says she doesn't know if her abdominal pain is any better. Iron was within normal limits, B12 within normal limits, however TSH and free T4 are elevated. Objective Vital Signs Date Time Temp Pulse Resp B/P Pulse Ox O2 Delivery O2 Flow Rate FiO2 01/24/17 16:31 97.5 85 20 116/56 98 01/24/17 12:53 97.2 87 20 114/59 99 01/24/17 08:51 97.4 96 20 136/69 97 01/24/17 05:00 98.2 99 18 150/79 98 01/24/17 00:30 98.0 81 18 126/68 100 01/23/17 23:29 18 01/23/17 20:30 97.6 126 17 118/77 98 I/O 01/23/17 01/23/17 01/23/17 01/24/17 01/24/17 01/24/17 07:00 15:00 23:00 07:00 15:00 23:00 Intake Total 931 ml 240 ml 540 ml Balance 931 ml 240 ml 540 ml Intake Oral 240 ml IV Total 931 ml 540 ml # Voids 2 3 # Bowel Movements 1 Result Diagram: 01/24/17 1007 01/23/17 0652 Objective Remarks GENERAL: Elderly female, lying in bed CARDIOVASCULAR: Regular rate and rhythm without murmurs, gallops, or rubs. RESPIRATORY: Breath sounds equal bilaterally and clear GASTROINTESTINAL: Abdomen soft, nondistended, mild diffuse tenderness to palpation MUSCULOSKELETAL: 4/5 strength proximally in 4 extremities, very thin legs PSYCH: Smiling or mainly today A/P Problem List: (1) Enteritis ICD Code: K52.9 (2) Dehydration ICD Code: E86.0 (3) Coronary artery disease ICD Code: I25.10 (4) Leukocytosis ICD Code: D72.829 (5) Diarrhea ICD Code: R19.7 Assessment and Plan 86-year-old white female admitted with abdominal pain and prolonged diarrhea along with subjective weight loss. Originally symptoms had improved after admission --> suddenly recurred preventing discharge --> slightly improved today. Repeat C. difficile is negative, stool workup also negative. Celiac panel pending Has been on Cipro Flagyl and IV fluids since admission. GI following, repeat contrast CT abdomen and pelvis is unremarkable (unable to do IV due to allergy). Patient's mood has become more withdrawn and sad. 1. Abdominal pain, diarrhea: Waxing and waning, today's a better day, history of adhesions may be playing into her symptomatology, continue Cipro Flagyl ( from admission diagnosis of enteritis) and IV fluids. adding on h. pylori stool antigen 2. UA - enterococcus - should to be covered with Cipro and Flagyl; no dysuria 3. Generalized weakness and slowed mentation - magnesium and phosphorus are low , TSH and free T4 are both elevated. We'll need to start with CT scan of the head, unable to do IV contrast due to diet and unable to do MRI at least at this time based upon the patient's narration due to having an intracardiac device. We'll need to verify with patient's machine turner company of her device is MRI compatible. 4.. Coronary artery disease: Continue Plavix, aspirin. Currently asymptomatic. 5. Hyperlipidemia: Continue statin. 6. Hypertension: stable, Continue amlodipine. 7. DVT prophylaxis: Heparin. Knees, MICHAEL hose. 8. GI prophylaxis: Protonix. Problem Qualifiers (1) Leukocytosis: Qualified Code: D72.829 - Leukocytosis, unspecified type (2) Diarrhea: Qualified Code: A09 - Diarrhea of infectious origin Preet Chen MD Jan 24, 2017 19:18
[2017-01-24] MEDS ORDERED: SODIUM PHOSPHATE INJ 30 MMOL in SODIUM CHLOR 0.9% 250 ML INJ 250 ML IV ONE (20:00)
--- NOTE | 2017-01-24 20:06 | RADRPT ---
EXAM DATE/TIME: 01/24/2017 19:43 [facility] COMPARISON: CT BRAIN W/O CONTRAST, June 06, 2010, 20:28. INDICATIONS : General weakness, tumor. RADIATION DOSE: 56.35 CTDIvol (mGy) MEDICAL HISTORY : Carcinoma, breast. SURGICAL HISTORY : Pacemaker. Coronary artery stent. Hysterectomy. Left sided mastectomy. ENCOUNTER: Initial ACUITY: 1 day PAIN SCALE: 3/10 LOCATION: Bilateral cranial TECHNIQUE: Multiple contiguous axial images were obtained of the head. Using automated exposure control and adj ustment of the mA and/or kV according to patient size, radiation dose was kept as low as reasonably a chievable to obtain optimal diagnostic quality images. DICOM format image data is available electro nically for review and comparison. FINDINGS: CEREBRUM: The ventricles are normal for age. No evidence of midline shift, mass lesion, hemorrhage or acute in farction. No extra-axial fluid collections are seen. POSTERIOR FOSSA: The cerebellum and brainstem are intact. The 4th ventricle is midline. The cerebellopontine angle i s unremarkable. EXTRACRANIAL: The visualized portion of the orbits is intact. SKULL: The calvaria is intact. No evidence of skull fracture. CONCLUSION: 1. No acute findings. Cortical volume loss stable since 2009. George Crawford MD on January 24, 2017 at 20:00 Board Certified Radiologist. This report was verified electronically.
[2017-01-24] MEDS: ATORVASTATIN 80 MG TAB PO SCH (22:14)
[2017-01-24] MEDS: MAGNESIUM SULFATE 1 GM PREMIX 100 ML IV SCH ×2 (22:14→23:17)
[2017-01-24] MEDS: MIRTAZAPINE 15 MG TAB PO SCH (22:14)
[2017-01-24] MEDS: traMADol HCL 50 MG TAB PO PRN (23:34)
[2017-01-24] MEDS: ALBUMIN HUMAN 25% 12.5 GM/50 ML BAGP IV SCH (23:53)
[2017-01-25 00:45] VITALS: PULSE 101
[2017-01-25] MEDS: metroNIDAZOLE 500 MG INJ 100 ML IV SCH ×2 (00:58→08:29)
[2017-01-25 04:33] VITALS: BP 126/60; PULSE 81; RESP 18; TEMP 97.3; O2SAT 97
[2017-01-25] MEDS: HEPARIN SODIUM - SQ 10,000 UNITS/ML VIAL SQ SCH (05:27)
[2017-01-25] MEDS: ASPIRIN EC 81 MG TABEC PO SCH (08:27)
[2017-01-25] MEDS: LACTOBACILLUS ACIDOPHILUS TAB PO SCH ×2 (08:27→13:00)
[2017-01-25] MEDS: PANTOPRAZOLE SODIUM 40 MG VIAL IV PUSH SCH (08:27)
[2017-01-25] MEDS: CLOPIDOGREL 75 MG TAB PO SCH (08:27)
[2017-01-25 08:51] VITALS: BP 111/58; PULSE 81; RESP 20; TEMP 98.6; O2SAT 97
[2017-01-25] MEDS: ALBUMIN HUMAN 25% 12.5 GM/50 ML BAGP IV SCH (12:00)
[2017-01-25 12:56] VITALS: BP 115/64; PULSE 100; RESP 20; TEMP 97.3; O2SAT 97
[2017-01-25 13:11] LABS: AUTOMATED NEUTROPHIL # 8.6 TH/MM3 (1.8-7.7); BASOPHIL # 0.1 TH/MM3 (0-0.2); BASOPHIL % 0.6 % (0.0-2.0); EOSINOPHIL # 0.5 TH/MM3 (0-0.4); EOSINOPHIL % 4.4 % (0.0-4.0); HEMATOCRIT 29.3 % (35.0-46.0); HEMO FLAGS DIFF FINAL; LYMPH % 14.4 % (9.0-44.0); LYMPHOCYTE # 1.7 TH/MM3 (1.0-4.8); MEAN CELL VOLUME 90.6 FL (80.0-100.0); MEAN CORPUSCULAR HEMOGLOBIN 31.2 PG (27.0-34.0); MEAN CORPUSCULAR HGB CONC 34.5 % (32.0-36.0); MONO % 10.3 % (0.0-8.0); NEUT % 70.3 % (16.0-70.0); PLATELET COUNT 324 TH/MM3 (150-450); RED BLOOD COUNT 3.24 MIL/MM3 (4.00-5.30); RED CELL DISTRIBUTION WIDTH 17.9 % (11.6-17.2); WHITE BLOOD COUNT 12.2 TH/MM3 (4.0-11.0)
[2017-01-25 13:37] LABS: BICARBONATE 16.3 MEQ/L (21.0-32.0); POTASSIUM 3.6 MEQ/L (3.5-5.1)
[2017-01-25 13:39] LABS: CALCIUM-PROTEIN CORRECTED 8.3 MG/DL (8.5-10.1); TOTAL BILIRUBIN ADULT 0.2 MG/DL (0.2-1.0)
[2017-01-25] MEDS ORDERED: CIPR500T2 PO (14:35)
[2017-01-25] MEDS ORDERED: TRAM50TA PO (14:35)
[2017-01-25] MEDS ORDERED: METR500T10 PO (14:35)
[2017-01-25] MEDS ORDERED: LACT PO (14:35)
--- NOTE | 2017-01-25 14:36 | HHI.DS ---
Discharge Summary Admission Date Jan 18, 2017 at 16:17 Discharge Date: Jan 25, 2017 Admitting Diagnosis Dehydration, QUIQUE, Enteritis (1) Dehydration ICD Code: E86.0 (2) Diarrhea ICD Code: R19.7 (3) Enteritis ICD Code: K52.9 (4) Hyponatremia ICD Code: E87.1 (5) Leukocytosis ICD Code: D72.829 (6) Sepsis ICD Code: A41.9 (7) Acute kidney injury ICD Code: N17.9 (8) Coronary artery disease ICD Code: I25.10 Procedures None Brief History - From Admission HPI from the admitting physician. The patient is an 86-year-old female who presents to the emergency department with complaint of ongoing diarrhea which started about 3 weeks ago. She also reports nausea and vomiting. She reports difficulty urinating recently. She has been having chills, but denies fever. She states that she had a colonoscopy recently in [place], but does not remember the name of the doctor. This was apparently done at [facility] in [place]. CBC/BMP: 01/25/17 1213 01/25/17 1213 Significant Findings Laboratory Tests Test 01/23/17 01/23/17 01/24/17 01/25/17 06:50 06:52 10:07 12:13 White Blood Count 15.9 TH/MM3 14.7 TH/MM3 12.2 TH/MM3 (4.0-11.0) (4.0-11.0) (4.0-11.0) Red Blood Count 3.80 MIL/MM3 3.93 MIL/MM3 3.24 MIL/MM3 (4.00-5.30) (4.00-5.30) (4.00-5.30) Hematocrit 34.3 % 29.3 % (35.0-46.0) (35.0-46.0) Red Cell Distribution Width 18.3 % 18.4 % 17.9 % (11.6-17.2) (11.6-17.2) (11.6-17.2) Neutrophils (%) (Auto) 70.9 % 70.3 % (16.0-70.0) (16.0-70.0) Monocytes (%) (Auto) 11.2 % 11.6 % 10.3 % (0.0-8.0) (0.0-8.0) (0.0-8.0) Neutrophils # (Auto) 11.3 TH/MM3 10.3 TH/MM3 8.6 TH/MM3 (1.8-7.7) (1.8-7.7) (1.8-7.7) Monocytes # (Auto) 1.8 TH/MM3 1.7 TH/MM3 1.3 TH/MM3 (0-0.9) (0-0.9) (0-0.9) Chloride Level 111 MEQ/L 110 MEQ/L (98-107) (98-107) Carbon Dioxide Level 15.1 MEQ/L 16.3 MEQ/L (21.0-32.0) (21.0-32.0) Estimat Glomerular Filtration 71 ML/MIN (>89) 76 ML/MIN (>89) Rate Calcium Level 6.8 MG/DL 6.8 MG/DL (8.5-10.1) (8.5-10.1) Protein Corrected Calcium 8.3 MG/DL 8.3 MG/DL (8.5-10.1) (8.5-10.1) Phosphorus Level 1.3 MG/DL (2.5-4.9) Total Protein 4.3 GM/DL 4.3 GM/DL (6.4-8.2) (6.4-8.2) Free Thyroxine 2.59 NG/DL (0.76-1.46) Eosinophils (%) (Auto) 4.1 % (0.0-4.0) 4.4 % (0.0-4.0) Eosinophils # (Auto) 0.6 TH/MM3 0.5 TH/MM3 (0-0.4) (0-0.4) Hemoglobin 10.1 GM/DL (11.6-15.3) Random Glucose 109 MG/DL (74-106) Aspartate Amino Transf 40 U/L (15-37) (AST/SGOT) Alkaline Phosphatase 118 U/L (45-117) Albumin 1.7 GM/DL (3.4-5.0) Parathyroid Hormone (Intact) 139.0 PG/ML (12.4-76.8) Imaging Last Impressions Head CT 01/24/17 0000 Signed Impressions: Service Date/Time: Tuesday, January 24, 2017 19:43 - CONCLUSION: 1. No acute findings. Cortical volume loss stable since 2009. George Crawford MD Abdomen/Pelvis CT 01/22/17 0000 Signed Impressions: Service Date/Time: Monday, January 23, 2017 01:24 - CONCLUSION: 1. Diverticulosis. 2. Bilateral effusions and left basilar consolidation now seen. 3. Ascites and body wall edema. 4. Hiatal hernia. 5. Hemorrhagic cyst left kidney. Andrea Burr MD PE at Discharge GENERAL: Frail and elderly female, in no apparent distress. CARDIOVASCULAR: Regular rate and rhythm without murmurs, gallops, or rubs. RESPIRATORY: Clear to auscultation. Breath sounds equal bilaterally. No wheezes , rales, or rhonchi. GASTROINTESTINAL: Abdomen soft, non-tender, nondistended. Normal active bowel sounds MUSCULOSKELETAL: Extremities without clubbing, cyanosis, or edema. NEURO: Alert & Oriented x4 to person, place, time, situation. Moves all ext x4 Pt update on day of discharge Patient reports feeling better. No diarrhea or abdominal pain. No nausea or vomiting. Hospital Course 86-year-old white female admitted with abdominal pain and prolonged diarrhea along with subjective weight loss. Originally symptoms had improved after admission, then suddenly recurred. Repeat C. difficile is negative, stool workup also negative. Celiac panel pending. Patient improved on Cipro, Flagyl and IV fluids. [facility], rest of her serologies can be followed outpatient. She is medically stable for discharge to a SNF. Evaluation and treatment course detailed below: Abdominal pain, diarrhea: Enteritis, improved with Cipro, flagyl, and IVF. Patient discharged on 3 more days of antibiotics to complete treatment. UA - enterococcus - Likely contaminant. There were no reported urinary symptoms. Generalized weakness and slowed mentation -Improved with treatment above. Patient to continue rehab at the SNF Coronary artery disease: Continue Plavix, aspirin. Currently asymptomatic. Pt Condition on Discharge: Stable Discharge Disposition: Discharge to SNF Discharge Time: > 30 minutes Discharge Instructions DIET: Follow Instructions for: Heart Healthy Diet Activities you can perform: Regular-No Restrictions Follow up Referrals: Gastroenterology - 2 Weeks @ [facility] New Medications: Ciprofloxacin (Ciprofloxacin) 500 Mg Tab 500 MG PO BID Infection #6 Ref 0 TAB Metronidazole (Metronidazole) 500 Mg Tab 500 MG PO TID Infection #9 Ref 0 TAB Lactobacillus Acidophilus (Acidophilus/l-Sporogenes) 1 Tab Tab 1 TAB PO TID #90 TAB Continued Medications: Aspirin DR (Aspirin DR) 81 Mg Tabdr 81 MG PO DAILY Ref 0 TAB Atorvastatin (Atorvastatin) 80 Mg Tab 80 MG PO HS Cholesterol Management #30 Ref 0 TAB Clopidogrel (Plavix) 75 Mg Tab 75 MG PO DAILY Blood Clot Prevention #30 Ref 0 TAB Colesevelam (Welchol) 625 Mg Tab 625 MG PO TID Hyperlipidemia,type 2 diabetes #180 Ref 0 TAB Methenamine Hippurate (Methenamine Hippurate) 1 Gm Tab 1 GM PO DAILY Infection Ref 0 TAB Mirtazapine (Mirtazapine) 30 Mg Tab 30 MG PO HS Depression Control #30 Ref 0 TAB Mzrvgntlhc-Bimekhlfgu-Rjpibmqqvbtjtuhntdu (Tribenzor) 40-10-12.5 mg Tab 1 TAB PO DAILY Blood Pressure Management #30 Ref 0 TAB Omeprazole (Omeprazole) 20 Mg Tab 20 MG PO DAILY #30 Ref 0 TAB Ondansetron (Zofran) 4 Mg Tab 4 MG PO Q4HR PRN NAUSEA OR VOMITING Ref 0 TAB Temazepam (Temazepam) 15 Mg Cap 15 MG PO HS PRN INSOMNIA #30 Ref 0 CAP Tramadol (Tramadol) 50 Mg Tab 50 MG PO BID PRN PAIN #20 Ref 0 TAB (This prescription has been renewed) Angelo Curtis MD Jan 25, 2017 14:35
[2017-01-25 15:07] LABS: WESTERGREN SEDIMENTATION RATE 8 mm/hr (0-30)
[2017-01-27 03:53] LABS: ENDOMYSIAL AB TITER ND (<1:5); TISSUE TRANSGLUTAMINASE AB 2 U/mL (())
== END 2017-01-25 17:08 | DRG 872 ==
LOC: NEPE 12:57 → NEDA 16:17 → N05A 20:09
PROVIDERS: ADMIT Family Medicine; ATTEND Family Medicine
PROC: 30233J1 Transfusion of Nonautologous Serum Albumin into Peripheral Vein, Percutaneous Approach (ICD-10-PCS; principal; 2017-01-24)
DX: A41.9 Sepsis, unspecified organism (principal); N17.9 Acute kidney failure, unspecified; E88.09 Other disorders of plasma-protein metabolism, not elsewhere classified; E87.1 Hypo-osmolality and hyponatremia; N39.0 Urinary tract infection, site not specified; Z68.1 Body mass index [BMI] 19.9 or less, adult; K52.9 Noninfective gastroenteritis and colitis, unspecified; B95.2 Enterococcus as the cause of diseases classified elsewhere; E86.0 Dehydration; R63.0 Anorexia; E11.9 Type 2 diabetes mellitus without complications; R63.4 Abnormal weight loss; M19.90 Unspecified osteoarthritis, unspecified site; E78.5 Hyperlipidemia, unspecified; I25.10 Atherosclerotic heart disease of native coronary artery without angina pectoris; Z95.5 Presence of coronary angioplasty implant and graft; I10 Essential (primary) hypertension; Z95.0 Presence of cardiac pacemaker; Z79.02 Long term (current) use of antithrombotics/antiplatelets; Z79.82 Long term (current) use of aspirin; Z87.891 Personal history of nicotine dependence; Z85.3 Personal history of malignant neoplasm of breast
CPT/HCPCS: 70450; 74176; 76937; 80048; 80053; 81001; 82550; 82607; 82784; 83516; 83540; 83605; 83690; 83735; 83970; 84100; 84145; 84155; 84439; 84443; 85025; 85610; 85652; 85730; 87040; 87077; 87086; 87186; 87493; 93005; 96360; C9113; J0744; J1644; J2060; J2405; J3475; J3480; J7030; P9047; Q9963